=== PATIENT | male | born 1945 | race Caucasian/White ===

== ENCOUNTER 2020-04-18 11:32 | Inpatient (IN) | payer MEDICARE, SELFPAY ==
[2020-04-18] VITALS (48 sets, daily range): BP systolic 105–179; BP diastolic 62–119; PULSE 105–156; RESP 18–32; TEMP 36.8–38.2; O2SAT 89–97; BMI 32.3
--- NOTE | 2020-04-18 11:47 | XRR_ITS ---
PROCEDURE INFORMATION: Exam: XR Chest, 1 View Exam date and time: 04/18/2020 11:49 AM Age: 74 years old Clinical indication: Fever; Additional info: Fever. Covid precautions TECHNIQUE: Imaging protocol: XR of the chest Views: 1 view. COMPARISON: No relevant prior studies available. FINDINGS: Lungs: Possible minimal left lower lung opacity. Pleural space: Unremarkable. No pleural effusion. No pneumothorax. Heart/Mediastinum: Unremarkable. No cardiomegaly. Bones/joints: No acute findings. XR/XR chest 1V portable 26220 IMPRESSION: Possible minimal left lower lobe infiltrate, recommend follow-up PA and lateral chest x-ray when clinically feasible.
--- NOTE | 2020-04-18 11:48 | ECG_ITS ---
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 Measurements Intervals [place] Rate: 118 P: 0 [place]: 137 QRS: -69 QRSD: 178 T: 31 QT: 310 QTc: 435 Interpretive Statements SINUS TACHYCARDIA RIGHT BUNDLE BRANCH BLOCK [120+ ms QRS DURATION, UPRIGHT V1, 40+ ms S IN I/aVL/V4/V5/V6] LEFT ANTERIOR FASCICULAR BLOCK [QRS AXIS <= -45, QR IN I, RS IN II] Compared to ECG 04/18/2020 12:06:01 Left ventricular hypertrophy no longer present ST (T wave) deviation no longer present Electronically Signed On 04-18-2020 18:57:27 CDT by Bob Duke M.D. [email or web address]/store/[id number]
--- NOTE | 2020-04-18 11:50 | ED_ITS ---
HPI - General Adult General: Chief complaint: General Medical Stated complaint: N/V HIGH BS Time Seen by Provider: 04/18/20 11:37 History of Present Illness: HPI narrative: This patient is a 74-year-old gentleman who presents today with vomiting and altered mental status. His blood sugar at home was very high apparently. He is an insulin-dependent diabetic. His said when he was first diagnosed he had an episode of DKA that was similar to this though not as severe. She said he has not had any problems since then and that was years ago. He started having the symptoms about 330 this morning. He was seen at his primary care doctor's office this morning and had a COVID test done as well as being sent to the ER. His said he is confused and complaining of being severely thirsty. He has a low-grade fever. She denies any known or suspected covert exposures. Prior to last night the patient has not had any symptoms of fever, cough, diarrhea. Onset (ago): hour(s) (8) Location: abdomen Radiation: non-radiation Severity: severe Associated symptoms: Reports malaise, nausea and vomiting; Deny chest pain, dyspnea, headache(s) or rash Review of Systems General: Reports: 10 or more systems reviewed and unremarkable except in HPI and below Const: Reports: fever(s), chills, fatigue and malaise Eyes: Denies: change in vision ENMT: Denies: odynophagia Card: Denies: chest pain or swelling of feet/ankles Resp: Denies: dyspnea, productive cough or non-productive cough GI: Reports: abdominal pain, nausea and vomiting : Denies: flank pain Musc: Denies: neck pain or back pain Skin/Breast: Denies: rash Neuro: Denies: headache(s), numbness in extremities or weakness in extremities Endo: Reports: polydipsia Dax/Lymph: Denies: easy bruising or easy bleeding Physical Exam Const: COMMON NORMALS: no limitations and alert GENERAL APPEARANCE: cooperative HENMT: HEAD & SCALP: normal to inspection FACE & SINUS: normal facial exam MOUTH: moist mucous membranes abnormal Details: parched Eye: GENERAL EYE: appearance normal, both eyes and all related structures Neck/C-Spine: COMMON NORMALS: supple, no meningeal signs and no JVD Chest: COMMONS NORMALS: normal inspection of the chest Resp: COMMON NORMALS: normal respiratory effort, No use of accessory muscles and clear to auscultation bilaterally EFFORT & INSPECTION: Yes tachypneic AUSCULTATION: clear to auscultation bilaterally Cardio: COMMON NORMALS: no JVD, regular rhythm and No murmurs present (Cardio) RATE: tachycardic RHYTHM: regular rhythm GI: COMMON NORMALS: Normal to inspection, nondistended, normoactive bowel sounds present, Soft to palpation and non-tender INSPECTION: Yes normal to inspection AUSCULTATION: Yes normoactive bowel sounds PALPATION: Yes Soft to palpation Back/Pelvis: COMMON NORMALS: thoracic and lumbar spine normal to inspection Extremity: COMMON NORMALS: normal to inspection Neuro: COMMON NORMALS: moves all extremities, no focal motor deficits and no sensory deficits noted SENSORIUM/ORIENTATION: Yes alert MENINGEAL SIGNS: Yes no meningeal signs Psych: COMMON NORMALS: mental status grossly normal and cooperative MOOD & AFFECT: Yes anxious Skin: COMMON NORMALS: no rashes or lesions noted and turgor normal GENERAL SKIN EXAM: no rashes or lesions noted and turgor normal Course ED course: This patient presented looking like he might have DKA however labs did not support that. His blood sugar was high. He does have a low-grade fever. His rapid COVID test was negative however I am keeping him on COVID precautions and sending a PTC. His labs are potentially related to COVID. He had a CT of his chest abdomen and pelvis which did not show any significant findings. He had insulin and fluids given and that brought his blood sugar down to 170. His mental status improved as his vital signs and blood sugar improved. He will be admitted to the hospitalist for further evaluation and treatment. Vital Signs: Vital signs: Vital Signs Temperature 98.4 F 04/18/20 19:53 Pulse Rate 107 H 04/18/20 19:53 Respiratory Rate 20 H 04/18/20 19:53 Blood Pressure 160/86 04/18/20 19:53 Pulse Oximetry 94 04/18/20 19:53 MDM - General Adult Lab Data: Labs: Lab Results 04/18/20 04/18/20 04/18/20 Range/Units 12:06 12:13 12:13 WBC 9.0 (4.0-10.0) 10^3/ uL RBC 5.27 (4.1-5.3) 10^6/u L Hgb 16.0 (11.7-16.6) g/dL Hct 46.6 (42.0-52.0) % MCV 88.4 (80-94) fL MCH 30.4 (28.0-34.0) pg MCHC 34.3 (30.0-36.0) g/dL RDW 13.8 (12.1-15.1) % Plt Count 194 (130-400) 10^3/c mm MPV 10.3 (7.4-10.4) fL Neut % (Auto) 89.1 % Lymph % (Auto) 5.0 % [place] % (Auto) 5.0 % Eos % (Auto) 0.2 % Baso % (Auto) 0.4 % Neut # (Auto) 7.99 H (1.8-7.7) 10^3/u L Lymph # (Auto) 0.5 L (0.8-4.8) 10^3/u L [place] # (Auto) 0.5 (0.2-0.9) 10^3/u L Eos # (Auto) 0.0 (0.0-0.8) 10^3/u L Baso # (Auto) 0.0 (0.0-0.1) 10^3/u L Nucleated RBC % (a uto) 0 % Nucleated RBCs # 0.0 /100WBC PT 12.60 (12.1-14.9) SECO NDS INR 0.92 (0.8-1.2) D-Dimer 2.52 H (0-0.59) ug/mIFE U Specimen Type Arterial Sample Site Radial, left ABG pH 7.48 H (7.35-7.45) ABG pCO2 31.1 L (35-45) mmHg ABG pO2 59.7 L (80.0-100.0) mmH g ABG HCO3 23.3 (22-26) mmol/L ABG Base Excess 0.8 (-2.0-2.0) mmol/ L [place] Test Pos Hematocrit 48.7 (42-52) % O2 Delivery Device Room air FiO2 21.0 % Agricultural And Forestry Supervisor ID jmn Sodium (136-145) mmol/L Potassium (3.5-5.1) mmol/L Chloride (98-107) mmol/L Carbon Dioxide (22-29) mmol/L Anion Gap (5-19) BUN (8-23) mg/dL Creatinine (0.7-1.2) mg/dL GFR Calculation Glucose (65-115) mg/dL POC Glucose (70-110) mg/dL Calculated Osmolal ity (285-295) mOsm/k g Lactic Acid (0.5-2.2) mmol/L Lactic Acid (Sepsi s) (0.5-2.2) mmol/L Calcium (8.5-10.5) mg/dL Total Bilirubin (0.15-1.2) mg/dL AST (0-40) U/L ALT (0-41) U/L Alkaline Phosphata se (40-130) IU/L Troponin T Baselin e (0-15) ng/L Troponin T 120 Min hoopa (0-15) ng/L Delta Troponin T (0-10) ABS# C-Reactive Protein (0.0-4.9) mg/L NT-Pro-B Natriuret Pep (0-125) pg/mL Total Protein (6.6-8.7) g/dL Albumin (3.5-5.2) g/dL Globulin (1.3-4.6) g/dL Procalcitonin (0-0.5) ng/mL Serum Ketones (Negative) Hepatitis A IgM Ab (Nonreactive) Hep Bs Antigen (Nonreactive) Hep B Core IgM Ab (Nonreactive) Hepatitis C Antibo dy (Nonreactive) Influenza Type A A g (Negative) Influenza Type B A g (Negative) SARS-CoV-2 Ag (Rap id) (Negative) 04/18/20 04/18/20 04/18/20 Range/Units 12:13 12:13 12:13 WBC (4.0-10.0) 10^3/ uL RBC (4.1-5.3) 10^6/u L Hgb (11.7-16.6) g/dL Hct (42.0-52.0) % MCV (80-94) fL MCH (28.0-34.0) pg MCHC (30.0-36.0) g/dL RDW (12.1-15.1) % Plt Count (130-400) 10^3/c mm MPV (7.4-10.4) fL Neut % (Auto) % Lymph % (Auto) % [place] % (Auto) % Eos % (Auto) % Baso % (Auto) % Neut # (Auto) (1.8-7.7) 10^3/u L Lymph # (Auto) (0.8-4.8) 10^3/u L [place] # (Auto) (0.2-0.9) 10^3/u L Eos # (Auto) (0.0-0.8) 10^3/u L Baso # (Auto) (0.0-0.1) 10^3/u L Nucleated RBC % (a uto) % Nucleated RBCs # /100WBC PT (12.1-14.9) SECO NDS INR (0.8-1.2) D-Dimer (0-0.59) ug/mIFE U Specimen Type Sample Site ABG pH (7.35-7.45) ABG pCO2 (35-45) mmHg ABG pO2 (80.0-100.0) mmH g ABG HCO3 (22-26) mmol/L ABG Base Excess (-2.0-2.0) mmol/ L [place] Test Hematocrit (42-52) % O2 Delivery Device FiO2 % Agricultural And Forestry Supervisor ID Sodium 138 (136-145) mmol/L Potassium 4.3 (3.5-5.1) mmol/L Chloride 97 L (98-107) mmol/L Carbon Dioxide 24 (22-29) mmol/L Anion Gap 21.3 H (5-19) BUN 19 (8-23) mg/dL Creatinine 1.1 (0.7-1.2) mg/dL GFR Calculation Not Reportable Glucose 409 H (65-115) mg/dL POC Glucose (70-110) mg/dL Calculated Osmolal ity 306 H (285-295) mOsm/k g Lactic Acid 2.4 H (0.5-2.2) mmol/L Lactic Acid (Sepsi s) (0.5-2.2) mmol/L Calcium 9.8 (8.5-10.5) mg/dL Total Bilirubin 1.1 (0.15-1.2) mg/dL AST 289 H (0-40) U/L ALT 250 H (0-41) U/L Alkaline Phosphata se 226 H (40-130) IU/L Troponin T Baselin e (0-15) ng/L Troponin T 120 Min hoopa (0-15) ng/L Delta Troponin T (0-10) ABS# C-Reactive Protein 20.4 H (0.0-4.9) mg/L NT-Pro-B Natriuret Pep 180 H (0-125) pg/mL Total Protein 8.0 (6.6-8.7) g/dL Albumin 5.0 (3.5-5.2) g/dL Globulin 3.0 (1.3-4.6) g/dL Procalcitonin 0.57 H (0-0.5) ng/mL Serum Ketones Negative (Negative) Hepatitis A IgM Ab (Nonreactive) Hep Bs Antigen (Nonreactive) Hep B Core IgM Ab (Nonreactive) Hepatitis C Antibo dy (Nonreactive) Influenza Type A A g (Negative) Influenza Type B A g (Negative) SARS-CoV-2 Ag (Rap id) Negative (Negative) 04/18/20 04/18/20 04/18/20 Range/Units 12:13 12:13 12:19 WBC (4.0-10.0) 10^3/ uL RBC (4.1-5.3) 10^6/u L Hgb (11.7-16.6) g/dL Hct (42.0-52.0) % MCV (80-94) fL MCH (28.0-34.0) pg MCHC (30.0-36.0) g/dL RDW (12.1-15.1) % Plt Count (130-400) 10^3/c mm MPV (7.4-10.4) fL Neut % (Auto) % Lymph % (Auto) % [place] % (Auto) % Eos % (Auto) % Baso % (Auto) % Neut # (Auto) (1.8-7.7) 10^3/u L Lymph # (Auto) (0.8-4.8) 10^3/u L [place] # (Auto) (0.2-0.9) 10^3/u L Eos # (Auto) (0.0-0.8) 10^3/u L Baso # (Auto) (0.0-0.1) 10^3/u L Nucleated RBC % (a uto) % Nucleated RBCs # /100WBC PT (12.1-14.9) SECO NDS INR (0.8-1.2) D-Dimer (0-0.59) ug/mIFE U Specimen Type Sample Site ABG pH (7.35-7.45) ABG pCO2 (35-45) mmHg ABG pO2 (80.0-100.0) mmH g ABG HCO3 (22-26) mmol/L ABG Base Excess (-2.0-2.0) mmol/ L [place] Test Hematocrit (42-52) % O2 Delivery Device FiO2 % Agricultural And Forestry Supervisor ID Sodium (136-145) mmol/L Potassium (3.5-5.1) mmol/L Chloride (98-107) mmol/L Carbon Dioxide (22-29) mmol/L Anion Gap (5-19) BUN (8-23) mg/dL Creatinine (0.7-1.2) mg/dL GFR Calculation Glucose (65-115) mg/dL POC Glucose 376 (70-110) mg/dL Calculated Osmolal ity (285-295) mOsm/k g Lactic Acid (0.5-2.2) mmol/L Lactic Acid (Sepsi s) (0.5-2.2) mmol/L Calcium (8.5-10.5) mg/dL Total Bilirubin (0.15-1.2) mg/dL AST (0-40) U/L ALT (0-41) U/L Alkaline Phosphata se (40-130) IU/L Troponin T Baselin e 25 H (0-15) ng/L Troponin T 120 Min hoopa (0-15) ng/L Delta Troponin T (0-10) ABS# C-Reactive Protein (0.0-4.9) mg/L NT-Pro-B Natriuret Pep (0-125) pg/mL Total Protein (6.6-8.7) g/dL Albumin (3.5-5.2) g/dL Globulin (1.3-4.6) g/dL Procalcitonin (0-0.5) ng/mL Serum Ketones (Negative) Hepatitis A IgM Ab Non-reactive (Nonreactive) Hep Bs Antigen Non-reactive (Nonreactive) Hep B Core IgM Ab Non-reactive (Nonreactive) Hepatitis C Antibo dy Non-reactive (Nonreactive) Influenza Type A A g (Negative) Influenza Type B A g (Negative) SARS-CoV-2 Ag (Rap id) (Negative) 04/18/20 04/18/20 04/18/20 Range/Units 12:51 14:25 14:25 WBC (4.0-10.0) 10^3/ uL RBC (4.1-5.3) 10^6/u L Hgb (11.7-16.6) g/dL Hct (42.0-52.0) % MCV (80-94) fL MCH (28.0-34.0) pg MCHC (30.0-36.0) g/dL RDW (12.1-15.1) % Plt Count (130-400) 10^3/c mm MPV (7.4-10.4) fL Neut % (Auto) % Lymph % (Auto) % [place] % (Auto) % Eos % (Auto) % Baso % (Auto) % Neut # (Auto) (1.8-7.7) 10^3/u L Lymph # (Auto) (0.8-4.8) 10^3/u L [place] # (Auto) (0.2-0.9) 10^3/u L Eos # (Auto) (0.0-0.8) 10^3/u L Baso # (Auto) (0.0-0.1) 10^3/u L Nucleated RBC % (a uto) % Nucleated RBCs # /100WBC PT (12.1-14.9) SECO NDS INR (0.8-1.2) D-Dimer (0-0.59) ug/mIFE U Specimen Type Sample Site ABG pH (7.35-7.45) ABG pCO2 (35-45) mmHg ABG pO2 (80.0-100.0) mmH g ABG HCO3 (22-26) mmol/L ABG Base Excess (-2.0-2.0) mmol/ L [place] Test Hematocrit (42-52) % O2 Delivery Device FiO2 % Agricultural And Forestry Supervisor ID Sodium (136-145) mmol/L Potassium (3.5-5.1) mmol/L Chloride (98-107) mmol/L Carbon Dioxide (22-29) mmol/L Anion Gap (5-19) BUN (8-23) mg/dL Creatinine (0.7-1.2) mg/dL GFR Calculation Glucose (65-115) mg/dL POC Glucose (70-110) mg/dL Calculated Osmolal ity (285-295) mOsm/k g Lactic Acid (0.5-2.2) mmol/L Lactic Acid (Sepsi s) 2.8 H (0.5-2.2) mmol/L Calcium (8.5-10.5) mg/dL Total Bilirubin (0.15-1.2) mg/dL AST (0-40) U/L ALT (0-41) U/L Alkaline Phosphata se (40-130) IU/L Troponin T Baselin e (0-15) ng/L Troponin T 120 Min hoopa 26.18 H (0-15) ng/L Delta Troponin T 1.18 (0-10) ABS# C-Reactive Protein (0.0-4.9) mg/L NT-Pro-B Natriuret Pep (0-125) pg/mL Total Protein (6.6-8.7) g/dL Albumin (3.5-5.2) g/dL Globulin (1.3-4.6) g/dL Procalcitonin (0-0.5) ng/mL Serum Ketones (Negative) Hepatitis A IgM Ab (Nonreactive) Hep Bs Antigen (Nonreactive) Hep B Core IgM Ab (Nonreactive) Hepatitis C Antibo dy (Nonreactive) Influenza Type A A g Negative (Negative) Influenza Type B A g Negative (Negative) SARS-CoV-2 Ag (Rap id) (Negative) 04/18/20 Range/Units 15:36 WBC (4.0-10.0) 10^3/ uL RBC (4.1-5.3) 10^6/u L Hgb (11.7-16.6) g/dL Hct (42.0-52.0) % MCV (80-94) fL MCH (28.0-34.0) pg MCHC (30.0-36.0) g/dL RDW (12.1-15.1) % Plt Count (130-400) 10^3/c mm MPV (7.4-10.4) fL Neut % (Auto) % Lymph % (Auto) % [place] % (Auto) % Eos % (Auto) % Baso % (Auto) % Neut # (Auto) (1.8-7.7) 10^3/u L Lymph # (Auto) (0.8-4.8) 10^3/u L [place] # (Auto) (0.2-0.9) 10^3/u L Eos # (Auto) (0.0-0.8) 10^3/u L Baso # (Auto) (0.0-0.1) 10^3/u L Nucleated RBC % (a uto) % Nucleated RBCs # /100WBC PT (12.1-14.9) SECO NDS INR (0.8-1.2) D-Dimer (0-0.59) ug/mIFE U Specimen Type Sample Site ABG pH (7.35-7.45) ABG pCO2 (35-45) mmHg ABG pO2 (80.0-100.0) mmH g ABG HCO3 (22-26) mmol/L ABG Base Excess (-2.0-2.0) mmol/ L [place] Test Hematocrit (42-52) % O2 Delivery Device FiO2 % Agricultural And Forestry Supervisor ID Sodium (136-145) mmol/L Potassium (3.5-5.1) mmol/L Chloride (98-107) mmol/L Carbon Dioxide (22-29) mmol/L Anion Gap (5-19) BUN (8-23) mg/dL Creatinine (0.7-1.2) mg/dL GFR Calculation Glucose (65-115) mg/dL POC Glucose 173 (70-110) mg/dL Calculated Osmolal ity (285-295) mOsm/k g Lactic Acid (0.5-2.2) mmol/L Lactic Acid (Sepsi s) (0.5-2.2) mmol/L Calcium (8.5-10.5) mg/dL Total Bilirubin (0.15-1.2) mg/dL AST (0-40) U/L ALT (0-41) U/L Alkaline Phosphata se (40-130) IU/L Troponin T Baselin e (0-15) ng/L Troponin T 120 Min hoopa (0-15) ng/L Delta Troponin T (0-10) ABS# C-Reactive Protein (0.0-4.9) mg/L NT-Pro-B Natriuret Pep (0-125) pg/mL Total Protein (6.6-8.7) g/dL Albumin (3.5-5.2) g/dL Globulin (1.3-4.6) g/dL Procalcitonin (0-0.5) ng/mL Serum Ketones (Negative) Hepatitis A IgM Ab (Nonreactive) Hep Bs Antigen (Nonreactive) Hep B Core IgM Ab (Nonreactive) Hepatitis C Antibo dy (Nonreactive) Influenza Type A A g (Negative) Influenza Type B A g (Negative) SARS-CoV-2 Ag (Rap id) (Negative) Discharge Plan Discharge Admit Provider: Alexandro Coreas Discharge Date/Time: 04/18/20 17:17 Coding Level of Care Code ED Oracle Developer for Chg Fwd Exam Comprehensive
[2020-04-18 12:17] LABS: ABG PCO2 31.1 mmHg (35-45); ABG PH Result 7.48 (7.35-7.45); Arterial Blood Gas Hematocrit 48.7 % (42-52); Base Excess ABG 0.8 mmol/L (-2.0-2.0); Blood Gas Allen Test Pos; Blood Gas Sample Type Arterial; HCO3 ABG 23.3 mmol/L (22-26); PO2 ABG 59.7 mmHg (80.0-100.0)
[2020-04-18 12:18] LABS: Blood Gas Sample Site Radial, left; Oxygen Device ROOM AIR
[2020-04-18 12:37] LABS: Basophils % 0.4 %; Eosinophils % 0.2 %; Hematocrit 46.6 % (42.0-52.0); Lymphocytes # 0.5 10^3/uL (0.8-4.8); Mean Corpuscular HGB Conc 34.3 g/dL (30.0-36.0); Mean Corpuscular Hemoglobin 30.4 pg (28.0-34.0); Mean Corpuscular Volume 88.4 fL (80-94); Mean Platelet Volume 10.3 fL (7.4-10.4); Monocytes # 0.5 10^3/uL (0.2-0.9); Neutrophils # 7.99 10^3/uL (1.8-7.7); Neutrophils % 89.1 %; Nucleated Red Blood Cells % 0 %; Platelet Count 194 10^3/cmm (130-400); Red Blood Count 5.27 10^6/uL (4.1-5.3); Red Cell Distribution Width 13.8 % (12.1-15.1)
[2020-04-18 12:37] LABS: Glucose Point of Care 376 mg/dL (70-110)
[2020-04-18] MEDS: sodium chloride 0.9% 1,000 ML 150 ML IV ×2 (12:47→21:07)
[2020-04-18 12:56] LABS: INR 0.92 (0.8-1.2)
[2020-04-18 12:58] LABS: D Dimer 2.52 ug/mIFEU (0-0.59); Ketone (Acetest) Serum Negative (Negative); Lactic Sepsis W/Reflex 2.4 mmol/L (0.5-2.2); SARS Covid-2 Antigen Negative (Negative)
[2020-04-18 13:00] LABS: Troponin(5th) Baseline 25 ng/L (0-15)
--- NOTE | 2020-04-18 13:01 | CT_ITS ---
WS: [id number] CTA CHEST ABDOMEN AND PELVIS TECHNIQUE: Noncontrast plus contrast enhanced CTA of the chest, abdomen, and pelvis with coronal and sagittal reformatted images and additional MIP Images. CLINICAL INFORMATION: SOB, tachy, high heart rate COMPARISON: None. DLP: 2844.[address] scans at [facility] use at least one of these dose optimization techniques: automat ed exposure control; mA and/or kV adjustment per patient size (includes targeted exams where dose is matched to clinical indication); or iterative reconstruction. FINDINGS: Images degraded by breathing motion artifact. Proximal main pulmonary arteries are normal. Segmental and subsegmental pulmonary arteries degraded by motion artifact. No definite evidence of pu lmonary embolus. Mild chronic emphysematous changes. Bibasilar atelectasis. No acute pulmonary infilt rates. No mediastinal or hilar lymphadenopathy. Coronary calcification. Normal caliber thoracic aorta . No axillary lymphadenopathy. Normal liver. Normal spleen. Small esophageal hiatal hernia. Adrenal glands are normal. Normal renal parenchymal enhancement. Bilateral renal cysts largest in the left measuring 5.1 CM. Fatty atrophy of the pancreas. Gallbladder is contracted. Normal caliber abdominal aorta. No abdominal aortic aneurys m. Mild aortic calcification. Urine distended bladder. Mild prostate enlargement measuring 4.1 CM. Sigmoid diverticulosis. No evide nce of small or large bowel obstruction. CT/CT angio chest w abd pel w con IMPRESSION: 1. Some images degraded by breathing artifact. No definite evidence for pulmon neo embolus. 2. Mild chronic emphysematous changes. Lungs are relatively well aerated. Biba silar atelectasis. 3. Small esophageal hiatal hernia. 4. Bilateral renal cysts largest in the left measuring 5.1 cm. 5. Diverticulosis. No evidence of acute diverticulitis. 6. Enlarged prostate measuring 4.1 CM. 7. Normal caliber thoracic and abdominal aorta.
[2020-04-18 13:08] LABS: NT Pro B Type Natriuretic Pept 180 pg/mL (0-125); Procalcitonin 0.57 ng/mL (0-0.5)
[2020-04-18 13:19] LABS: Alanine Aminotransferase 250 U/L (0-41); Alkaline Phosphatase 226 IU/L (40-130); Anion Gap 21.3 (5-19); Aspartate Amino Transferase 289 U/L (0-40); Blood Urea Nitrogen 19 mg/dL (8-23); C Reactive Protein 20.4 mg/L (0.0-4.9); Calcium 9.8 mg/dL (8.5-10.5); Carbon Dioxide 24 mmol/L (22-29); Chloride 97 mmol/L (98-107); Glucose 409 mg/dL (65-115); Osmolality Calculated 306 mOsm/kg (285-295); Potassium 4.3 mmol/L (3.5-5.1); Sodium 138 mmol/L (136-145); Total Bilirubin 1.1 mg/dL (0.15-1.2)
[2020-04-18 13:21] LABS: Influenza A by IFA Negative (Negative); Influenza B by IFA Negative (Negative)
--- NOTE | 2020-04-18 13:46 | PC.NURSE ---
DR. ZULETA SPEAKING WITH PT AT BEDSIDE. PT THEN TAKEN TO CT VIA CRECHE ATTENDANT AND STRETCHER.
--- NOTE | 2020-04-18 13:48 | ECG_ITS ---
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 Measurements Intervals [place] Rate: 103 P: 42 AL: 171 QRS: -64 QRSD: 180 T: 12 QT: 374 QTc: 491 Interpretive Statements SINUS TACHYCARDIA RIGHT BUNDLE BRANCH BLOCK [120+ ms QRS DURATION, UPRIGHT V1, 40+ ms S IN I/aVL/V4/V5/V6] LEFT ANTERIOR FASCICULAR BLOCK [QRS AXIS <= -45, QR IN I, RS IN II] Compared to ECG 04/18/2020 14:10:39 No significant changes Electronically Signed On 04-18-2020 19:31:36 CDT by Bob Duke M.D. [email or web address] regional hospitalPlacecastpromedica memorial hospital.[employer]/store/[id number]
[2020-04-18] MEDS: iohexol 350 mg/mL 100 mL Btl IV (14:00)
[2020-04-18 14:13] LABS: Reflex Lactate Order REFLEX LACTIC ORDERD
[2020-04-18] MEDS: insulin regular-human 100 units/1 mL 10 UNIT IVP (14:18)
[2020-04-18] MEDS: cefTRIAXone 1,000 MG in sodium chloride 0.9% (plus) 50 ML 100 MG IV (14:21)
[2020-04-18] MEDS: azithromycin 500 MG in sodium chloride 0.9% 250 ML 250 MG IV (14:29)
[2020-04-18] MEDS: acetaminophen 325 mg Tablet 650 MG PO (14:36)
[2020-04-18] MEDS: sodium chloride 0.9% 1,000 ML 999 ML IV (14:36)
[2020-04-18 14:55] LABS: Lactic Acid level (Lactate) 2.8 mmol/L (0.5-2.2)
[2020-04-18 14:58] LABS: Troponin 5 2HR 26.18 ng/L (0-15); Troponin 5 2HR Delta 1.18 ABS# (0-10)
[2020-04-18 15:40] LABS: Glucose Point of Care 173 mg/dL (70-110)
--- NOTE | 2020-04-18 16:33 | PC.NURSE ---
ATTEMPTED REPORT NURSE UNAVAILABLE.
--- NOTE | 2020-04-18 17:48 | ECG_ITS ---
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 Measurements Intervals [place] Rate: 121 P: [place]: -1 QRS: -75 QRSD: 165 T: 37 QT: 349 QTc: 497 Interpretive Statements SINUS TACHYCARDIA RIGHT BUNDLE BRANCH BLOCK [120+ ms QRS DURATION, UPRIGHT V1, 40+ ms S IN I/aVL/V4/V5/V6] LEFT ANTERIOR FASCICULAR BLOCK [QRS AXIS <= -45, QR IN I, RS IN II] LEFT VENTRICULAR HYPERTROPHY AND ST-T CHANGE [VOLTAGE CRITERIA PLUS ST/T ABNORMALITY] No previous ECG available for comparison Electronically Signed On 04-18-2020 19:38:22 CDT by Bob Duke M.D. [email or web address] View Technologiestippah county hospitalEatStreetgreen cross hospital.[employer]/store/[id number]
--- NOTE | 2020-04-18 19:01 | ECG_ITS ---
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 Measurements Intervals [place] Rate: 100 P: [place]: -1 QRS: -60 QRSD: 185 T: -9 QT: 392 QTc: 507 Interpretive Statements Possible sinus tachycardia RIGHT BUNDLE BRANCH BLOCK [120+ ms QRS DURATION, UPRIGHT V1, 40+ ms S IN I/aVL/V4/V5/V6] LEFT ANTERIOR FASCICULAR BLOCK [QRS AXIS <= -45, QR IN I, RS IN II] SEPTAL MYOCARDIAL INFARCTION [40+ ms Q WAVE IN V1/V2], PROBABLY OLD Compared to ECG 04/18/2020 16:55:10 Myocardial infarct finding now present Sinus tachycardia no longer present Electronically Signed On 04-19-2020 18:34:44 CDT by Arturo Snider M.D. [email or web address].[email or web address]/store/[id number]
[2020-04-18 19:02] LABS: Troponin 5 6HR 29.92 ng/L (0-15); Troponin 5 6HR Delta 4.92 ng/L (0-12)
--- NOTE | 2020-04-18 19:16 | PM.HP ---
Providers/Chief Complaint Admitting Physician: Alexandro Coreas Chief Complaint: N/V HIGH BS History of Present Illness Andi Caceres is a 74 year old male with past medical history of brittle diabetes who presented to emergency room with complaints of confusion. He was in his normal state of health this morning. He states that he forgot to take his insulin because he was in hurry to go to his PCPs appointment. When he arrived he was already confused. There was associated nausea and vomiting. In the emergency room he was found to have blood sugar above 400. He was given IV fluids and insulin bolus. His confusion improved quickly. Currently he reports feeling much better. He is awake alert and oriented x3. No acute distress. He already had his dinner without any nausea or vomiting. He also denies any abdominal pain. He reports some cough with colored mucus. Denies shortness of breath. No fevers or chills. Denies diarrhea. Denies dysuria. Recently he was started on Lipitor. Took several doses. Today his LFTs were significantly elevated. Denies any similar episodes in the past. He reports hypertension, denies coronary artery disease or CHF, denies COPD, has history of dyslipidemia which was recently diagnosed. Reports GERD. Family history is unremarkable and noncontributory.. He reports drinking alcohol on regular basis. Denies tobacco. Denies drugs. Review of Systems General: Reports: 10 or more systems reviewed and unremarkable except in HPI and below Medications/Allergies Home Medications Medication Instructions Recorded Confirmed Last Taken Type aspirin 81 mg PO DAILY 04/18/20 04/18/20 04/17/20 History atorvastatin 40 mg PO DAILY 04/18/20 04/18/20 04/17/20 History insulin NPH isoph U-100 human See Rx Instructions .ROUTE .COMPLEX 04/18/20 04/18/20 04/17/20 History [Novolin N Flexpen] insulin regular human [Novolin R 25 unit SUBCUT BID 04/18/20 04/18/20 04/17/20 History Flexpen] lisinopril 40 mg PO DAILY 04/18/20 04/18/20 04/17/20 History metformin 1,000 mg PO BID 04/18/20 04/18/20 04/17/20 History omeprazole 20 mg PO BID 04/18/20 04/18/20 04/17/20 History Allergies Allergy/AdvReac Type Severity Reaction Status Date / Time No Known Allergies Allergy Unverified 04/18/20 13:15 Vitals/I&O/Wt Last Vital Signs Temp 98.2 F 04/18/20 17:00 Pulse 107 H 04/18/20 17:00 Resp 18 04/18/20 17:00 BP 147/86 04/18/20 17:00 Pulse Ox 94 04/18/20 17:00 04/18/20 04/18/20 04/18/20 06:59 14:59 22:59 Intake Total .65 / .65 Balance .65 / . Weight last 48 hrs Weight 105.233 kg Physical Exam Narrative: EXAM NARRATIVE: Awake alert oriented. No acute distress. Mood and affect are appropriate. Responses are adequate. Skin is warm and dry. Moist mucous membranes. Neck is supple. No JVD Lungs decreased breath sounds bibasilarly. Minimal crackles. No respiratory distress Heart S1, S2, regular Abdomen is obese, soft, nontender, bowel sounds are present Extremities trace edema. No cyanosis. No calf tenderness bilaterally Neurological examination is nonfocal. Normal speech. Data : 04/18/20 12:13 04/18/20 12:13 Other Labs: Laboratory Results WBC 9.0 10^3/uL (4.0-10.0) 04/18/20 12:13 RBC 5.27 10^6/uL (4.1-5.3) 04/18/20 12:13 Hgb 16.0 g/dL (11.7-16.6) 04/18/20 12:13 Hct 46.6 % (42.0-52.0) 04/18/20 12:13 MCV 88.4 fL (80-94) 04/18/20 12:13 MCH 30.4 pg (28.0-34.0) 04/18/20 12:13 MCHC 34.3 g/dL (30.0-36.0) 04/18/20 12:13 RDW 13.8 % (12.1-15.1) 04/18/20 12:13 Plt Count 194 10^3/cmm (130-400) 04/18/20 12:13 MPV 10.3 fL (7.4-10.4) 04/18/20 12:13 Neut % (Auto) 89.1 % 04/18/20 12:13 Lymph % (Auto) 5.0 % 04/18/20 12:13 Juab % (Auto) 5.0 % 04/18/20 12:13 Eos % (Auto) 0.2 % 04/18/20 12:13 Baso % (Auto) 0.4 % 04/18/20 12:13 Neut # (Auto) 7.99 10^3/uL (1.8-7.7) H 04/18/20 12:13 Lymph # (Auto) 0.5 10^3/uL (0.8-4.8) L 04/18/20 12:13 Juab # (Auto) 0.5 10^3/uL (0.2-0.9) 04/18/20 12:13 Eos # (Auto) 0.0 10^3/uL (0.0-0.8) 04/18/20 12:13 Baso # (Auto) 0.0 10^3/uL (0.0-0.1) 04/18/20 12:13 Nucleated RBC % (auto) 0 % 04/18/20 12:13 Nucleated RBCs # 0.0 /100WBC 04/18/20 12:13 PT 12.60 SECONDS (12.1-14.9) 04/18/20 12:13 INR 0.92 (0.8-1.2) 04/18/20 12:13 D-Dimer 2.52 ug/mIFEU (0-0.59) H 04/18/20 12:13 Specimen Type Arterial 04/18/20 12:06 Sample Site Radial, left 04/18/20 12:06 ABG pH 7.48 (7.35-7.45) H 04/18/20 12:06 ABG pCO2 31.1 mmHg (35-45) L 04/18/20 12:06 ABG pO2 59.7 mmHg (80.0-100.0) L 04/18/20 12:06 ABG HCO3 23.3 mmol/L (22-26) 04/18/20 12:06 ABG Base Excess 0.8 mmol/L (-2.0-2.0) 04/18/20 12:06 Jasper Test Pos 04/18/20 12:06 Hematocrit 48.7 % (42-52) 04/18/20 12:06 O2 Delivery Device Room air 04/18/20 12:06 FiO2 21.0 % 04/18/20 12:06 Log Haul Operator ID [id number] 04/18/20 12:06 Sodium 138 mmol/L (136-145) 04/18/20 12:13 Potassium 4.3 mmol/L (3.5-5.1) 04/18/20 12:13 Chloride 97 mmol/L (98-107) L 04/18/20 12:13 Carbon Dioxide 24 mmol/L (22-29) 04/18/20 12:13 Anion Gap 21.3 (5-19) H 04/18/20 12:13 BUN 19 mg/dL (8-23) 04/18/20 12:13 Creatinine 1.1 mg/dL (0.7-1.2) 04/18/20 12:13 GFR Calculation Not Reportable 04/18/20 12:13 Glucose 409 mg/dL (65-115) H 04/18/20 12:13 POC Glucose 173 mg/dL (70-110) 04/18/20 15:36 Calculated Osmolality 306 mOsm/kg (285-295) H 04/18/20 12:13 Lactic Acid 2.4 mmol/L (0.5-2.2) H 04/18/20 12:13 Lactic Acid (Sepsis) 2.8 mmol/L (0.5-2.2) H 04/18/20 14:25 Calcium 9.8 mg/dL (8.5-10.5) 04/18/20 12:13 Total Bilirubin 1.1 mg/dL (0.15-1.2) 04/18/20 12:13 AST 289 U/L (0-40) H 04/18/20 12:13 ALT 250 U/L (0-41) H 04/18/20 12:13 Alkaline Phosphatase 226 IU/L (40-130) H 04/18/20 12:13 Troponin T Baseline 25 ng/L (0-15) H 04/18/20 12:13 Troponin T 120 Minute 26.18 ng/L (0-15) H 04/18/20 14:25 Delta Troponin T 1.18 ABS# (0-10) 04/18/20 14:25 Troponin T Hi Sens 6Hr 29.92 ng/L (0-15) H 04/18/20 18:15 Troponin T Hi Sens 6Hr Delta 4.92 ng/L (0-12) 04/18/20 18:15 C-Reactive Protein 20.4 mg/L (0.0-4.9) H 04/18/20 12:13 NT-Pro-B Natriuret Pep 180 pg/mL (0-125) H 04/18/20 12:13 Total Protein 8.0 g/dL (6.6-8.7) 04/18/20 12:13 Albumin 5.0 g/dL (3.5-5.2) 04/18/20 12:13 Globulin 3.0 g/dL (1.3-4.6) 04/18/20 12:13 Procalcitonin 0.57 ng/mL (0-0.5) H 04/18/20 12:13 Serum Ketones Negative (Negative) 04/18/20 12:13 Influenza Type A Ag Negative (Negative) 04/18/20 12:51 Influenza Type B Ag Negative (Negative) 04/18/20 12:51 SARS-CoV-2 Ag (Rapid) Negative (Negative) 04/18/20 12:13 Impressions Chest X-Ray 04/18/20 11:47 IMPRESSION: Possible minimal left lower lobe infiltrate, recommend follow-up PA and lateral chest x-ray when clinically feasible. Chest/Abdomen/Pelvis CT 04/18/20 13:01 IMPRESSION: 1. Some images degraded by breathing artifact. No definite evidence for pulmonary embolus. 2. Mild chronic emphysematous changes. Lungs are relatively well aerated. Bibasilar atelectasis. 3. Small esophageal hiatal hernia. 4. Bilateral renal cysts largest in the left measuring 5.1 cm. 5. Diverticulosis. No evidence of acute diverticulitis. 6. Enlarged prostate measuring 4.1 CM. 7. Normal caliber thoracic and abdominal aorta. Micro: Microbiology 04/18/20 12:20 Blood Culture - Preliminary Blood SPECIMEN COLLECTED 04/18/20 12:13 Blood Culture - Preliminary Blood SPECIMEN COLLECTED A&P Additional A&P Information Acute metabolic encephalopathy. Currently resolved. Probably multifactorial. I suspect that dehydration and hyperglycemia are the primary causes. However the urine test is still pending. We will continue close monitoring. Sinus tachycardia present on admission. Mostly resolved with IV fluids. We will continue monitoring on telemetry. We will continue IV fluid hydration. Mild elevation of troponin probably secondary to #2. No chest pain. No history of coronary artery disease. We will resume his home aspirin. Elevated LFTs. Stopping Lipitor. I suspect that this was due to statin. Will require outpatient monitoring of liver enzymes and lipid levels. Suspected pneumonia. We will continue antibiotics. Will check procalcitonin level in the morning. Alcohol. We will start him on CIWA protocol. Will also receive vitamin replacement. Uncontrolled hyperglycemia. Could be noncompliance with home medications. We will check his A1c level. We will cover him with insulin sliding scale. We will resume his home maintenance insulin. Holding metformin for now. DVT prophylaxis. Lovenox. Hypertension. Will use PRN labetalol for now. CODE STATUS. He wants to be DNR. He fully understands the concept. The plan of care was discussed with the patient. He verbalized understanding and agreement. Attestations Medical Necessity Statement*: I expect that he will require at least 2 midnights to complete work-up and continue treatments and monitoring. Coding Level of Care Code Acute Technical Sales Director for Janet Canales
[2020-04-18 20:00] LABS: Lactic Sepsis W/Reflex 1.7 mmol/L (0.5-2.2)
[2020-04-18 20:26] LABS: Hepatitis A Antibody IgM Non-Reactive (Nonreactive); Hepatitis B Core IgM Non-Reactive (Nonreactive); Hepatitis B Surface Antigen Non-Reactive (Nonreactive); Hepatitis C Virus Antibody Non-Reactive (Nonreactive)
[2020-04-18 20:42] LABS: Glucose Point of Care 520 mg/dL (70-110)
[2020-04-18] MEDS: enoxaparin 40 mg/0.4 mL Syringe SUBCUT (21:06)
[2020-04-18] MEDS: sodium chloride 0.9% 2,000 ML 999 ML IV (22:13)
[2020-04-18 23:04] LABS: Bilirubin Urine Neg (Negative); Blood Urine Neg (Negative); Glucose Urine UA 4+ (Normal); Ketones Urine 1+ (Negative); Nitrate Urine Negative (Negative); Protein Urine Neg (Negative); Urine Appearance Clear (CLEAR); Urine Color Yellow (Yellow); Urobilinogen Urine Norm (Negative); pH Urine 7 (5-7)
[2020-04-18 23:05] LABS: Add Urine Microscopic? YES; Bacteria Urine R /hpf; Leukocyte Esterase Urine Negative (Negative); RBC Urine RARE /hpf (0-2); Squamous Epithelial Cell Urine RARE /hpf (0-5); WBC Urine RARE /hpf (0-5)
[2020-04-19] VITALS (7 sets, daily range): BP systolic 160–220; BP diastolic 80–110; PULSE 77–108; RESP 18–22; TEMP 36.8–38.8; O2SAT 94–95
[2020-04-19 00:06] LABS: Glucose Point of Care 244 mg/dL (70-110)
[2020-04-19] MEDS: acetaminophen 325 mg Tablet 650 MG PO (00:31)
[2020-04-19] MEDS: sodium chloride 0.9% 1,000 ML 100 ML IV (05:11)
[2020-04-19 06:06] LABS: Basophils # 0.1 10^3/uL (0.0-0.1); Basophils % 0.5 %; Eosinophils % 0.2 %; Hematocrit 40.5 % (42.0-52.0); Hemoglobin 13.3 g/dL (11.7-16.6); Lymphocytes # 1.1 10^3/uL (0.8-4.8); Mean Corpuscular HGB Conc 32.8 g/dL (30.0-36.0); Mean Corpuscular Hemoglobin 30.4 pg (28.0-34.0); Mean Corpuscular Volume 92.7 fL (80-94); Mean Platelet Volume 11.2 fL (7.4-10.4); Monocytes # 0.9 10^3/uL (0.2-0.9); Neutrophils % 80.9 %; Nucleated Red Blood Cells % 0 %; Platelet Count 170 10^3/cmm (130-400); Red Blood Count 4.37 10^6/uL (4.1-5.3); Red Cell Distribution Width 13.9 % (12.1-15.1); White Blood Count 10.9 10^3/uL (4.0-10.0)
[2020-04-19 06:39] LABS: Thyroid Stimulating Hormone 0.84 uIU/mL (0.27-4.20)
[2020-04-19 06:41] LABS: Alanine Aminotransferase 133 U/L (0-41); Albumin Level 3.8 g/dL (3.5-5.2); Alkaline Phosphatase 146 IU/L (40-130); Anion Gap 16.3 (5-19); Aspartate Amino Transferase 82 U/L (0-40); Blood Urea Nitrogen 14 mg/dL (8-23); Calcium 8.8 mg/dL (8.5-10.5); Carbon Dioxide 23 mmol/L (22-29); Chloride 104 mmol/L (98-107); Globulin 2.7 g/dL (1.3-4.6); Glucose 275 mg/dL (65-115); Osmolality Calculated 298 mOsm/kg (285-295); Phosphorus 3.4 mg/dL (2.5-4.5); Potassium 4.3 mmol/L (3.5-5.1); Sodium 139 mmol/L (136-145); Total Bilirubin 1.1 mg/dL (0.15-1.2); Total Protein 6.5 g/dL (6.6-8.7)
[2020-04-19 06:51] LABS: Cholesterol 113 mg/dL (0-200); HDL Cholesterol 39 mg/dL (60-100); LDL Cholesterol Calculated 32 mg/dL (50-129); LDL HDL Ratio 0.82 RATIO (0.00-3.22); Triglycerides 211 mg/dL (0-150)
[2020-04-19 07:00] LABS: Glucose Point of Care 331 mg/dL (70-110)
[2020-04-19 07:29] LABS: Estmated Average Glucose 209; Hemoglobin A1C 8.9 % (4.0-6.0)
--- NOTE | 2020-04-19 08:46 | PC.NURSE ---
0800 Started #20 g IV in right hand, connected to NS at 100ml/hr.
[2020-04-19] MEDS: multivitamin therapeutic Tablet 1 TAB PO (08:55)
[2020-04-19] MEDS: thiamine 100 mg Tablet PO (08:55)
[2020-04-19] MEDS: aspirin 81 mg Chew Tablet PO (08:55)
[2020-04-19] MEDS: doxycycline 100 mg Tablet PO (08:55)
[2020-04-19] MEDS: pantoprazole DR 40 mg Tablet PO ×2 (08:55→17:26)
[2020-04-19] MEDS: folic acid 1 mg Tablet PO (08:55)
--- NOTE | 2020-04-19 09:57 | PC.NURSE ---
0845 Notified of critical lab of Blood cultures 4 of 4 gram neg rods. Pt on Rocephin, will see what is lab further results.
[2020-04-19] MEDS: sodium chloride 0.9% 1,000 ML 75 ML IV (10:26)
[2020-04-19 11:52] LABS: Glucose Point of Care 268 mg/dL (70-110)
[2020-04-19] MEDS: cefTRIAXone 1,000 MG in sodium chloride 0.9% (plus) 50 ML 100 MG IV ×2 (12:22→12:39)
[2020-04-19] MEDS: insulin glargine 100 units/1 mL 30 UNIT SUBCUT ×2 (12:55→22:11)
--- NOTE | 2020-04-19 15:24 | PM.PN ---
Subjective Subjective: Interval history: Patient looks tired. Slightly confused. Responses are adequate and he is oriented. No acute distress. Denies any pain. Denies chest pain, shortness of breath, cough, palpitations. Denies abdominal pain. Denies dysuria. No nausea or vomiting. No diarrhea. Medications: Reviewed: Yes Medication Review Details: Generic Name Dose Route Start Last Admin Trade Name Freq PRN Reason Stop Dose Admin Acetaminophen 650 mg 04/19/20 00:19 04/19/20 00:31 Tylenol PO 650 mg Q4H PRN Administration MILD PAIN OR INCR EASE TEMP Aspirin 81 mg 04/19/20 09:00 04/19/20 08:55 Aspirin Chewable PO 81 mg DAILY FABIANO Administration Doxycycline Monohy drate 100 mg 04/19/20 09:00 04/19/20 08:55 Vibramycin PO 100 mg BID FABIANO Administration Protocol Enoxaparin Sodium 40 mg 04/18/20 20:00 04/18/20 21:06 Lovenox SUBCUT 40 mg Q24H FABIANO Administration Folic Acid 1 mg 04/19/20 09:00 04/19/20 08:55 Folic Acid PO 1 mg DAILY FABIANO Administration Sodium Chloride 1,000 mls @ 75 ml s/hr 04/18/20 12:00 04/19/20 10:30 Sodium Chloride 0.9% IV 100 mls/hr .[id number] FABIANO Infusion Diltiazem HCl 125 mg/ Sodium 125 mls @ 0 mls/h r 04/18/20 13:00 04/18/20 19:28 Chloride IV 0 mg/hr .Q0M FABIANO 0 mls/hr Titration Protocol Per Protocol Ceftriaxone Sodium 1,000 mg/ 50 mls @ 100 mls/ hr 04/19/20 12:00 04/19/20 12:39 Sodium Chloride IV 100 mls/hr Q24H FABIANO Administration Protocol Insulin Aspart 0 unit 04/18/20 21:00 04/18/20 22:01 Novolog SUBCUT Not Given BEDTIME FABIANO Protocol Insulin Aspart 0 unit 04/19/20 08:00 04/19/20 12:15 Novolog SUBCUT 10 unit TIDWM FABIANO Administration Protocol Multivitamins Ther apeutic 1 tab 04/19/20 09:00 04/19/20 08:55 Multivitamin Tab PO 1 tab DAILY FABIANO Administration Pantoprazole Sodiu m 40 mg 04/19/20 09:00 04/19/20 08:55 Protonix PO 40 mg BID FABIANO Administration Thiamine Mononitra te 100 mg 04/19/20 09:00 04/19/20 08:55 Vitamin B-1 PO 100 mg DAILY FABIANO Administration Vitals/I&O/Wt Last Vital Signs Temp 98.4 F 04/19/20 12:00 Pulse 96 04/19/20 12:00 Resp 20 H 04/19/20 12:00 BP 178/88 04/19/20 12:00 Pulse Ox 95 04/19/20 12:00 04/19/20 04/19/20 04/19/20 06:59 14:59 22:59 Intake Total 2973.334 / 4522.484 1010 / 1010 Output Total 400 / 800 750 / 750 Balance 2573.334 / 3722.484 260 / 260 Weight last 48 hrs Weight 105.233 kg Physical Exam Narrative: EXAM NARRATIVE: Slightly confused. Sleeping. Oriented x4. No acute distress. Mood and affect are appropriate. Responses are adequate. Skin is warm and dry. Moist mucous membranes. Neck is supple. No JVD Lungs clear bilateral. No crackles today. No respiratory distress Heart S1, S2, regular Abdomen is obese, soft, nontender, bowel sounds are present Extremities 1+ symmetric edema. No cyanosis. No calf tenderness bilaterally Neurological examination is nonfocal. Normal speech. Data : 04/19/20 05:15 04/19/20 05:15 Micro: Microbiology 04/18/20 12:20 Blood Culture - Preliminary Blood Gram Negative Rods 04/18/20 12:13 Blood Culture - Preliminary Blood Gram Negative Rods A&P Additional A&P Information Acute metabolic encephalopathy. Probably due to infection and dehydration. Does not seem to have UTI. We will continue close monitoring and supportive care. Gram-negative bacteremia. Not sure where the source is. Discussed with the radiologist. Gallbladder might be the source. Ordering HIDA scan. Prostate is enlarged but does not seem to be inflamed. UA is negative for UTI. Does not have symptoms. We will switch him to Zosyn. Will wait for sensitivities. Will slightly increase IV fluid rate today. Sinus tachycardia present on admission. Mostly resolved with IV fluids. We will continue monitoring on telemetry. We will continue IV fluid hydration. Mild elevation of troponin probably secondary to #2. No chest pain. No history of coronary artery disease. We will resume his home aspirin. Elevated LFTs. Improved. Lipitor is stopped. I suspect that this was due to statin. Will require outpatient monitoring of liver enzymes and lipid levels. Has fatty liver on Doppler ultrasound. Suspected pneumonia. Discussed with the radiologist Dr. Reyes. He doubts that there is evidence of pneumonia. Will stop doxycycline. Continue Zosyn for now. Alcohol. We will start him on CIWA protocol. Will also receive vitamin replacement. Uncontrolled hyperglycemia. Could be noncompliance with home medications. Discussed with the pharmacist. Switching his maintenance insulin to Lantus with slightly increased dose. We will continue insulin sliding scale. DVT prophylaxis. Lovenox. Hypertension. Will use PRN labetalol for now. CODE STATUS. He wants to be DNR. He fully understands the concept. The plan of care was discussed with the patient. He verbalized understanding and agreement. Attestations Medical Necessity Statement*: The plan of care requires him to remain hospitalized. Coding Level of Care Code Acute Transportation Analyst for Janet Canales
[2020-04-19] MEDS: labetalol 5 mg/mL SDV 20mL 10 MG IVP (16:12)
[2020-04-19 17:08] LABS: Glucose Point of Care 313 mg/dL (70-110)
[2020-04-19] MEDS: metoprolol tartrate 25 mg Tablet PO (17:25)
[2020-04-19] MEDS: piperacillin-tazobactam 3.375 GM in sodium chloride 0.9% (plus) 50 ML IV (17:25)
--- NOTE | 2020-04-19 19:26 | US_ITS ---
WS: [id number] ULTRASOUND ABDOMEN LIMITED CLINICAL INFORMATION: Elevated LFTs. COMPARISON: None. FINDINGS: Liver Size: Enlarged Craniocaudal length: 18.6 cm. Echogenicity: Coarse Surface nodularity: None. Mass (size and location): None. Bile ducts Intrahepatic ducts: Normal. Common bile duct diameter: 0.3 cm. Gallbladder Sludge Gallstones: None. Gallbladder sludge: Present Gallbladder wall thickening: Mild wall thickening measuring 3 mm Pericholecystic fluid: None. Sonographic Turner sign: Absent. Pancreas Not well seen Right kidney: Cyst inferior pole right kidney measuring 2.0 x 2.8 cm Hydronephrosis: None. Size: 12.9 cm x 5.0 cm x 6.4 cm. Abdominal aorta and IVC Visualized portions are normal. Ascites: None. US/US abdomen limited [id number] IMPRESSION: 1. Hepatomegaly with diffuse fatty infiltration 2. Gallbladder is contracted with gallbladder sludge. No shadowing calculi. Mi nimal wall thickening. No pericholecystic fluid. 3. Normal common bile duct. 4. Right inferior pole renal cyst measuring 2.0x2.8 cm 5. No hydronephrosis in right kidney.
[2020-04-19 21:05] LABS: Glucose Point of Care 319 mg/dL (70-110)
[2020-04-19] MEDS: sodium chloride 0.9% 1,000 ML 125 ML IV (22:07)
[2020-04-19] MEDS: enoxaparin 40 mg/0.4 mL Syringe SUBCUT (22:10)
[2020-04-20] VITALS (9 sets, daily range): BP systolic 136–192; BP diastolic 72–93; PULSE 72–113; RESP 16–20; TEMP 36.6–37.9; O2SAT 72–97
[2020-04-20] MEDS: piperacillin-tazobactam 3.375 GM in sodium chloride 0.9% (plus) 50 ML IV ×3 (01:10→16:33)
[2020-04-20 05:40] LABS: Basophils # 0.1 10^3/uL (0.0-0.1); Basophils % 0.7 %; Eosinophils # 0.1 10^3/uL (0.0-0.8); Eosinophils % 0.7 %; Hematocrit 36.9 % (42.0-52.0); Hemoglobin 12.3 g/dL (11.7-16.6); Lymphocytes # 0.8 10^3/uL (0.8-4.8); Lymphocytes % 10.5 %; Mean Corpuscular HGB Conc 33.3 g/dL (30.0-36.0); Mean Corpuscular Hemoglobin 30.2 pg (28.0-34.0); Mean Corpuscular Volume 90.7 fL (80-94); Mean Platelet Volume 10.6 fL (7.4-10.4); Monocytes # 0.6 10^3/uL (0.2-0.9); Monocytes % 8.3 %; Neutrophils # 5.94 10^3/uL (1.8-7.7); Neutrophils % 79.3 %; Nucleated Red Blood Cells % 0 %; Platelet Count 150 10^3/cmm (130-400); Red Blood Count 4.07 10^6/uL (4.1-5.3); Red Cell Distribution Width 13.7 % (12.1-15.1); White Blood Count 7.5 10^3/uL (4.0-10.0)
[2020-04-20 06:12] LABS: Alanine Aminotransferase 85 U/L (0-41); Albumin Level 3.5 g/dL (3.5-5.2); Alkaline Phosphatase 103 IU/L (40-130); Anion Gap 14.8 (5-19); Aspartate Amino Transferase 37 U/L (0-40); Blood Urea Nitrogen 13 mg/dL (8-23); Calcium 8.2 mg/dL (8.5-10.5); Carbon Dioxide 21 mmol/L (22-29); Chloride 101 mmol/L (98-107); Globulin 2.7 g/dL (1.3-4.6); Glucose 212 mg/dL (65-115); Osmolality Calculated 282 mOsm/kg (285-295); Potassium 3.8 mmol/L (3.5-5.1); Sodium 133 mmol/L (136-145); Total Bilirubin 0.7 mg/dL (0.15-1.2); Total Protein 6.2 g/dL (6.6-8.7)
[2020-04-20 06:50] LABS: Glucose Point of Care 241 mg/dL (70-110)
[2020-04-20] MEDS: lisinopril 20 mg Tablet PO (10:41)
[2020-04-20] MEDS: folic acid 1 mg Tablet PO (10:41)
[2020-04-20] MEDS: thiamine 100 mg Tablet PO (10:41)
[2020-04-20] MEDS: pantoprazole DR 40 mg Tablet PO ×2 (10:42→17:49)
[2020-04-20] MEDS: metoprolol tartrate 25 mg Tablet PO ×2 (10:42→17:49)
[2020-04-20] MEDS: multivitamin therapeutic Tablet 1 TAB PO (10:42)
[2020-04-20] MEDS: aspirin 81 mg Chew Tablet PO (10:42)
[2020-04-20] MEDS: insulin glargine 100 units/1 mL 30 UNIT SUBCUT (10:44)
[2020-04-20 10:57] LABS: Glucose Point of Care 385 mg/dL (70-110)
--- NOTE | 2020-04-20 12:29 | PC.NURSE ---
COVID TEST [facility] IN [place] CALLED REGARDING PT COVID TEST. RESULTS ARE NEGATIVE. NOTIFIED DR. MILLER AND HE VERBALIZES UNDERSTANDING. PT OFF PRECAUTIONS.
--- NOTE | 2020-04-20 14:06 | PM.PN ---
Subjective Subjective: Interval history: patient looks better today. He reports feeling better. No acute distress. No weakness. No confusion. No chest pain, shortness of breath, cough, palpitations. Denies abdominal pain. No nausea or vomiting. No diarrhea. No dysuria. Back pain. Medications: Reviewed: Yes Medication Review Details: Generic Name Dose Route Start Last Admin Trade Name Freq PRN Reason Stop Dose Admin Acetaminophen 650 mg 04/19/20 00:19 04/19/20 00:31 Tylenol PO 650 mg Q4H PRN Administration MILD PAIN OR INCR EASE TEMP Aspirin 81 mg 04/19/20 09:00 04/20/20 10:42 Aspirin Chewable PO 81 mg DAILY FABIANO Administration Enoxaparin Sodium 40 mg 04/18/20 20:00 04/19/20 22:10 Lovenox SUBCUT 40 mg Q24H FABIANO Administration Folic Acid 1 mg 04/19/20 09:00 04/20/20 10:41 Folic Acid PO 1 mg DAILY FABIANO Administration Sodium Chloride 1,000 mls @ 125 m ls/hr 04/18/20 12:00 04/20/20 10:39 Sodium Chloride 0.9% IV Not Given .Q8H FABIANO Diltiazem HCl 125 mg/ Sodium 125 mls @ 0 mls/h r 04/18/20 13:00 04/18/20 19:28 Chloride IV 0 mg/hr .Q0M FABIANO 0 mls/hr Titration Protocol Per Protocol Piperacillin Sod/T azobactam 50 mls @ 12.5 mls /hr 04/19/20 16:00 04/20/20 10:42 Sod 3.375 gm/ So dium Chloride IV 12.5 mls/hr Q8H FABIANO Administration Protocol Insulin Aspart 0 unit 04/18/20 21:00 04/19/20 22:11 Novolog SUBCUT 6 unit BEDTIME FABIANO Administration Protocol Insulin Aspart 0 unit 04/19/20 08:00 04/20/20 11:33 Novolog SUBCUT 14 unit TIDWM FABIANO Administration Protocol Labetalol HCl 10 mg 04/18/20 19:11 04/19/20 16:12 Trandate IVP 10 mg Q4H PRN Administration hyp Lisinopril 20 mg 04/20/20 09:00 04/20/20 10:41 Prinivil PO 20 mg DAILY FABIANO Administration Metoprolol Tartrat e 25 mg 04/19/20 18:00 04/20/20 10:42 Lopressor PO 25 mg BID FABIANO Administration Multivitamins Ther apeutic 1 tab 04/19/20 09:00 04/20/20 10:42 Multivitamin Tab PO 1 tab DAILY FABIANO Administration Pantoprazole Sodiu m 40 mg 04/19/20 09:00 04/20/20 10:42 Protonix PO 40 mg BID FABIANO Administration Thiamine Mononitra te 100 mg 04/19/20 09:00 04/20/20 10:41 Vitamin B-1 PO 100 mg DAILY FABIANO Administration Vitals/I&O/Wt Last Vital Signs Temp 97.8 F 04/20/20 08:00 Pulse 88 04/20/20 08:00 Resp 16 04/20/20 08:00 BP 136/72 04/20/20 08:00 Pulse Ox 97 04/20/20 08:00 04/19/20 04/20/20 04/20/20 22:59 06:59 14:59 Intake Total 1045.000 / 2055.000 50 / 2105.000 Output Total 1600 / 2350 500 / 2850 Balance -555.000 / -295.000 -450 / -745.000 Physical Exam Narrative: EXAM NARRATIVE: awake and alert. Oriented x4. No acute distress. Mood and affect are appropriate. Responses are adequate. Skin is warm and dry. Moist mucous membranes. Neck is supple. No JVD Lungs clear bilateral. No crackles today. No respiratory distress Heart S1, S2, regular Abdomen is obese, soft, nontender, bowel sounds are present Extremities 1+ symmetric edema. No cyanosis. No calf tenderness bilaterally Neurological examination is nonfocal. Normal speech. Data : 04/20/20 05:05 04/20/20 05:05 Other Labs: Laboratory Results WBC 7.5 10^3/uL (4.0-10.0) 04/20/20 05:05 RBC 4.07 10^6/uL (4.1-5.3) L 04/20/20 05:05 Hgb 12.3 g/dL (11.7-16.6) 04/20/20 05:05 Hct 36.9 % (42.0-52.0) L 04/20/20 05:05 MCV 90.7 fL (80-94) 04/20/20 05:05 MCH 30.2 pg (28.0-34.0) 04/20/20 05:05 MCHC 33.3 g/dL (30.0-36.0) 04/20/20 05:05 RDW 13.7 % (12.1-15.1) 04/20/20 05:05 Plt Count 150 10^3/cmm (130-400) 04/20/20 05:05 MPV 10.6 fL (7.4-10.4) H 04/20/20 05:05 Neut % (Auto) 79.3 % 04/20/20 05:05 Lymph % (Auto) 10.5 % 04/20/20 05:05 [place] % (Auto) 8.3 % 04/20/20 05:05 Eos % (Auto) 0.7 % 04/20/20 05:05 Baso % (Auto) 0.7 % 04/20/20 05:05 Neut # (Auto) 5.94 10^3/uL (1.8-7.7) 04/20/20 05:05 Lymph # (Auto) 0.8 10^3/uL (0.8-4.8) 04/20/20 05:05 [place] # (Auto) 0.6 10^3/uL (0.2-0.9) 04/20/20 05:05 Eos # (Auto) 0.1 10^3/uL (0.0-0.8) 04/20/20 05:05 Baso # (Auto) 0.1 10^3/uL (0.0-0.1) 04/20/20 05:05 Nucleated RBC % (auto) 0 % 04/20/20 05:05 Nucleated RBCs # 0.0 /100WBC 04/20/20 05:05 PT 12.60 SECONDS (12.1-14.9) 04/18/20 12:13 INR 0.92 (0.8-1.2) 04/18/20 12:13 D-Dimer 2.52 ug/mIFEU (0-0.59) H 04/18/20 12:13 Specimen Type Arterial 04/18/20 12:06 Sample Site Radial, left 04/18/20 12:06 ABG pH 7.48 (7.35-7.45) H 04/18/20 12:06 ABG pCO2 31.1 mmHg (35-45) L 04/18/20 12:06 ABG pO2 59.7 mmHg (80.0-100.0) L 04/18/20 12:06 ABG HCO3 23.3 mmol/L (22-26) 04/18/20 12:06 ABG Base Excess 0.8 mmol/L (-2.0-2.0) 04/18/20 12:06 [place] Test Pos 04/18/20 12:06 Hematocrit 48.7 % (42-52) 04/18/20 12:06 O2 Delivery Device Room air 04/18/20 12:06 FiO2 21.0 % 04/18/20 12:06 Branch Operations Coordinator ID [email or web address] 04/18/20 12:06 Sodium 133 mmol/L (136-145) L 04/20/20 05:05 Potassium 3.8 mmol/L (3.5-5.1) 04/20/20 05:05 Chloride 101 mmol/L (98-107) 04/20/20 05:05 Carbon Dioxide 21 mmol/L (22-29) L 04/20/20 05:05 Anion Gap 14.8 (5-19) 04/20/20 05:05 BUN 13 mg/dL (8-23) 04/20/20 05:05 Creatinine 0.9 mg/dL (0.7-1.2) 04/20/20 05:05 GFR Calculation Not Reportable 04/20/20 05:05 Glucose 212 mg/dL (65-115) H 04/20/20 05:05 POC Glucose 385 mg/dL (70-110) 04/20/20 10:52 Estimat Average Glucose 209 04/19/20 05:15 Hemoglobin A1c 8.9 % (4.0-6.0) H 04/19/20 05:15 Calculated Osmolality 282 mOsm/kg (285-295) L 04/20/20 05:05 Lactic Acid 1.7 mmol/L (0.5-2.2) 04/18/20 19:32 Lactic Acid (Sepsis) 2.8 mmol/L (0.5-2.2) H 04/18/20 14:25 Calcium 8.2 mg/dL (8.5-10.5) L 04/20/20 05:05 Phosphorus 3.4 mg/dL (2.5-4.5) 04/19/20 05:15 Magnesium 2.0 mg/dL (1.7-2.3) 04/20/20 05:05 Total Bilirubin 0.7 mg/dL (0.15-1.2) 04/20/20 05:05 AST 37 U/L (0-40) 04/20/20 05:05 ALT 85 U/L (0-41) H 04/20/20 05:05 Alkaline Phosphatase 103 IU/L (40-130) 04/20/20 05:05 Troponin T Baseline 25 ng/L (0-15) H 04/18/20 12:13 Troponin T 120 Minute 26.18 ng/L (0-15) H 04/18/20 14:25 Delta Troponin T 1.18 ABS# (0-10) 04/18/20 14:25 Troponin T Hi Sens 6Hr 29.92 ng/L (0-15) H 04/18/20 18:15 Troponin T Hi Sens 6Hr Delta 4.92 ng/L (0-12) 04/18/20 18:15 C-Reactive Protein 20.4 mg/L (0.0-4.9) H 04/18/20 12:13 NT-Pro-B Natriuret Pep 180 pg/mL (0-125) H 04/18/20 12:13 Total Protein 6.2 g/dL (6.6-8.7) L 04/20/20 05:05 Albumin 3.5 g/dL (3.5-5.2) 04/20/20 05:05 Globulin 2.7 g/dL (1.3-4.6) 04/20/20 05:05 Triglycerides 211 mg/dL (0-150) H 04/19/20 05:15 Cholesterol 113 mg/dL (0-200) 04/19/20 05:15 LDL Cholesterol, Calc 32 mg/dL (50-129) L 04/19/20 05:15 HDL Cholesterol 39 mg/dL (60-100) L 04/19/20 05:15 LDL/HDL Ratio 0.82 RATIO (0.00-3.22) 04/19/20 05:15 Cholesterol/HDL Ratio 2.90 mg/dL (1.0-5.00) 04/19/20 05:15 Prostate Specific Ag 2.160 ng/mL (0-4) 04/20/20 05:05 Procalcitonin 1.30 ng/mL (0-0.5) H 04/20/20 05:05 TSH 0.84 uIU/mL (0.27-4.20) 04/19/20 05:15 Urine Color Yellow (Yellow) 04/18/20 22:00 Urine Appearance Clear (CLEAR) 04/18/20 22:00 Urine pH 7 (5-7) 04/18/20 22:00 Ur Specific [place] 1.010 (1.005-1.030) 04/18/20 22:00 Urine Protein Neg (Negative) 04/18/20 22:00 Urine Glucose (UA) 4+ (Normal) H 04/18/20 22:00 Urine Ketones 1+ (Negative) H 04/18/20 22:00 Urine Blood Neg (Negative) 04/18/20 22:00 Urine Nitrate Negative (Negative) 04/18/20 22:00 Urine Bilirubin Neg (Negative) 04/18/20 22:00 Urine Urobilinogen Norm mg/dL (Negative) 04/18/20 22:00 Ur Leukocyte Esterase Negative (Negative) 04/18/20 22:00 Urine RBC Rare /hpf (0-2) 04/18/20 22:00 Urine WBC Rare /hpf (0-5) 04/18/20 22:00 Ur Squamous Epith Cells Rare /hpf (0-5) 04/18/20 22:00 Amorphous Sediment Not Reportable 04/18/20 22:00 Urine Bacteria R /hpf (NONE) 04/18/20 22:00 Serum Ketones Negative (Negative) 04/18/20 12:13 Hepatitis A IgM Ab Non-reactive (Nonreactive) 04/18/20 12:13 Hep Bs Antigen Non-reactive (Nonreactive) 04/18/20 12:13 Hep B Core IgM Ab Non-reactive (Nonreactive) 04/18/20 12:13 Hepatitis C Antibody Non-reactive (Nonreactive) 04/18/20 12:13 Influenza Type A Ag Negative (Negative) 04/18/20 12:51 Influenza Type B Ag Negative (Negative) 04/18/20 12:51 SARS-CoV-2 Ag (Rapid) Negative (Negative) 04/18/20 12:13 Impressions Chest X-Ray 04/18/20 11:47 IMPRESSION: Possible minimal left lower lobe infiltrate, recommend follow-up PA and lateral chest x-ray when clinically feasible. Chest/Abdomen/Pelvis CT 04/18/20 13:01 IMPRESSION: 1. Some images degraded by breathing artifact. No definite evidence for pulmonary embolus. 2. Mild chronic emphysematous changes. Lungs are relatively well aerated. Bibasilar atelectasis. 3. Small esophageal hiatal hernia. 4. Bilateral renal cysts largest in the left measuring 5.1 cm. 5. Diverticulosis. No evidence of acute diverticulitis. 6. Enlarged prostate measuring 4.1 CM. 7. Normal caliber thoracic and abdominal aorta. Abdomen Ultrasound 04/19/20 19:26 IMPRESSION: 1. Hepatomegaly with diffuse fatty infiltration 2. Gallbladder is contracted with gallbladder sludge. No shadowing calculi. Minimal wall thickening. No pericholecystic fluid. 3. Normal common bile duct. 4. Right inferior pole renal cyst measuring 2.0x2.8 cm 5. No hydronephrosis in right kidney. Hepatobiliary Scan Nuclear Medicine 04/20/20 15:31 IMPRESSION: 1. Tiny contracted gallbladder appears to fill by 90 minutes. No definite evidence of acute cholecystitis. 2. No significant gallbladder emptying on the delayed imaging suggestive of chronic cholecystitis. Micro: gram-negative bacteria pain to blood samples. Sensitivities are pending. A&P Assessment and plan (1) Gram-negative bacteremia: Status: Acute (2) Pneumonia: Status: Acute (3) Uncontrolled diabetes mellitus: Status: Acute (4) Acute metabolic encephalopathy: Status: Acute (5) Abnormal LFTs: Status: Acute Additional A&P Information Acute metabolic encephalopathy. Probably due to infection and dehydration. resolved. Does not seem to have UTI. We will continue close monitoring and supportive care. Gram-negative bacteremia. Not sure where the source is. Discussed with the radiologist. HIDA scandidn't show cholecystitis. Prostate is enlarged but does not seem to be inflamed. PSA is within normal range. UA is negative for UTI. Does not have symptoms. continuing Zosyn. Will wait for sensitivities. we'll stop IV fluids today. Sinus tachycardia present on admission. resolved. Mild elevation of troponin probably secondary to #2. No chest pain. No history of coronary artery disease. on home aspirin. Elevated LFTs. Improved. Lipitor is stopped. I suspect that this was due to statin. Will require outpatient monitoring of liver enzymes and lipid levels. Has fatty liver on Doppler ultrasound. Suspected pneumonia. Discussed with the radiologist Dr. Reyes. He doubts that there is evidence of pneumonia. Will stop doxycycline. Continue Zosyn for now. Alcohol. We will start him on CIWA protocol. Will also receive vitamin replacement. no evidence of withdrawals. Uncontrolled hyperglycemia. adjusting Lantus dose. Continue insulin sliding scale. DVT prophylaxis. Lovenox. Hypertension. Will use PRN labetalol for now. CODE STATUS. He wants to be DNR. He fully understands the concept. The plan of care was discussed with the patient. He verbalized understanding and agreement. Attestations Medical Necessity Statement*: the plan of care requires that he remains hospitalized. Continue IV antibiotics. Waiting for sensitivities. Need additional testing. Coding Level of Care Code Acute Newsroom Intern for [facility] Fwd Diagnoses Gram-negative bacteremia R78.81 Pneumonia J18.9 Uncontrolled diabetes mellitus E11.65 Acute metabolic encephalopathy G93.41 Abnormal LFTs R94.5
--- NOTE | 2020-04-20 15:31 | NM_ITS ---
WS: [id number] NUCLEAR MEDICINE HIDA SCAN CLINICAL INFORMATION: cholecystitis? TECHNIQUE: Following intravenous administration of 8.6 mCi of technetium 99m mebrofenin, images of th e abdomen were obtained over the course of 60 minutes. Next, gallbladder ejection fraction was determ ined by obtaining preprandial and one-hour postprandial images of the gallbladder following oral ammon stion of Ensure. COMPARISON: CT April 18, 2020 and ultrasound April 17, 2020 FINDINGS: Normal hepatic uptake at 5 minutes. Tiny contracted gallbladder fills by 90 minutes. No definite evid ence of acute cholecystitis. Normal small bowel and common bile duct activity. No evidence of choledo cholithiasis. No significant emptying on the delayed imaging suggestive of chronic cholecystitis. Gallbladder eject ion fraction not calculated due to no significant emptying. NM/NM hepatobiliary w phar* [id number] IMPRESSION: 1. Tiny contracted gallbladder appears to fill by 90 minutes. No definite evid ence of acute cholecystitis. 2. No significant gallbladder emptying on the delayed imaging suggestive of ch ronic cholecystitis.
[2020-04-20 17:54] LABS: Glucose Point of Care 299 mg/dL (70-110)
[2020-04-20 21:02] LABS: Glucose Point of Care 328 mg/dL (70-110)
[2020-04-20] MEDS: enoxaparin 40 mg/0.4 mL Syringe SUBCUT (21:24)
[2020-04-20] MEDS: insulin glargine 100 units/1 mL 35 UNIT SUBCUT (21:25)
[2020-04-21] MEDS: piperacillin-tazobactam 3.375 GM in sodium chloride 0.9% (plus) 50 ML IV ×3 (00:42→17:32)
[2020-04-21 04:48] VITALS: BP 143/71; PULSE 46; RESP 15; TEMP 36.4; O2SAT 94
[2020-04-21 05:59] LABS: Basophils # 0.1 10^3/uL (0.0-0.1); Basophils % 0.8 %; Eosinophils # 0.1 10^3/uL (0.0-0.8); Eosinophils % 1.9 %; Hematocrit 37.5 % (42.0-52.0); Hemoglobin 12.6 g/dL (11.7-16.6); Mean Corpuscular HGB Conc 33.6 g/dL (30.0-36.0); Mean Corpuscular Volume 89.3 fL (80-94); Monocytes # 0.7 10^3/uL (0.2-0.9); Monocytes % 11.7 %; Neutrophils # 4.09 10^3/uL (1.8-7.7); Neutrophils % 69.1 %; Nucleated Red Blood Cells % 0 %; Platelet Count 169 10^3/cmm (130-400); Red Cell Distribution Width 13.4 % (12.1-15.1); White Blood Count 5.9 10^3/uL (4.0-10.0)
[2020-04-21 06:23] LABS: Albumin Level 3.4 g/dL (3.5-5.2); Anion Gap 16.7 (5-19); Blood Urea Nitrogen 14 mg/dL (8-23); Calcium 8.3 mg/dL (8.5-10.5); Carbon Dioxide 20 mmol/L (22-29); Chloride 102 mmol/L (98-107); Glucose 217 mg/dL (65-115); Phosphorus 2.7 mg/dL (2.5-4.5); Potassium 3.7 mmol/L (3.5-5.1); Sodium 135 mmol/L (136-145)
[2020-04-21 06:28] LABS: Magnesium 2.1 mg/dL (1.7-2.3)
[2020-04-21 07:39] LABS: Glucose Point of Care 231 mg/dL (70-110)
[2020-04-21 07:53] VITALS: BP 144/76; PULSE 86; RESP 16; TEMP 37.1; O2SAT 98
[2020-04-21] MEDS: metoprolol tartrate 25 mg Tablet PO ×2 (08:41→17:33)
[2020-04-21] MEDS: lisinopril 20 mg Tablet PO (08:41)
[2020-04-21] MEDS: folic acid 1 mg Tablet PO (08:41)
[2020-04-21] MEDS: insulin glargine 100 units/1 mL 40 UNIT SUBCUT ×2 (08:41→21:16)
[2020-04-21] MEDS: pantoprazole DR 40 mg Tablet PO ×2 (08:41→17:33)
[2020-04-21] MEDS: aspirin 81 mg Chew Tablet PO (08:41)
[2020-04-21] MEDS: thiamine 100 mg Tablet PO (08:42)
[2020-04-21] MEDS: multivitamin therapeutic Tablet 1 TAB PO (08:42)
[2020-04-21 10:56] LABS: Glucose Point of Care 398 mg/dL (70-110)
[2020-04-21 11:16] VITALS: BP 154/91; PULSE 64; RESP 18; TEMP 36.6; O2SAT 94
--- NOTE | 2020-04-21 11:38 | PM.PN ---
Subjective Subjective: Interval history: Continues improving. Patient looks better today. He reports feeling better. No acute distress. No weakness. No confusion. No chest pain, shortness of breath, cough, palpitations. Denies abdominal pain. No nausea or vomiting. No diarrhea. No dysuria. Back pain. Medications: Reviewed: Yes Medication Review Details: Generic Name Dose Route Start Last Admin Trade Name Freq PRN Reason Stop Dose Admin Acetaminophen 650 mg 04/19/20 00:19 04/19/20 00:31 Tylenol PO 650 mg Q4H PRN Administration MILD PAIN OR INCR EASE TEMP Aspirin 81 mg 04/19/20 09:00 04/21/20 08:41 Aspirin Chewable PO 81 mg DAILY FABIANO Administration Enoxaparin Sodium 40 mg 04/18/20 20:00 04/20/20 21:24 Lovenox SUBCUT 40 mg Q24H FABIANO Administration Folic Acid 1 mg 04/19/20 09:00 04/21/20 08:41 Folic Acid PO 1 mg DAILY FABIANO Administration Diltiazem HCl 125 mg/ Sodium 125 mls @ 0 mls/h r 04/18/20 13:00 04/18/20 19:28 Chloride IV 0 mg/hr .Q0M FABIANO 0 mls/hr Titration Protocol Per Protocol Piperacillin Sod/T azobactam 50 mls @ 12.5 mls /hr 04/19/20 16:00 04/21/20 08:37 Sod 3.375 gm/ So dium Chloride IV 12.5 mls/hr Q8H FABIANO Administration Protocol Insulin Aspart 0 unit 04/18/20 21:00 04/20/20 21:25 Novolog SUBCUT 6 unit BEDTIME FABIANO Administration Protocol Insulin Aspart 0 unit 04/19/20 08:00 04/21/20 11:32 Novolog SUBCUT 14 unit TIDWM FABIANO Administration Protocol Insulin Glargine 40 unit 04/21/20 09:00 04/21/20 08:41 Lantus SUBCUT 40 unit Q12H FABIANO Administration Labetalol HCl 10 mg 04/18/20 19:11 04/19/20 16:12 Trandate IVP 10 mg Q4H PRN Administration hyp Lisinopril 20 mg 04/20/20 09:00 04/21/20 08:41 Prinivil PO 20 mg DAILY FABIANO Administration Metoprolol Tartrat e 25 mg 04/19/20 18:00 04/21/20 08:41 Lopressor PO 25 mg BID FABIANO Administration Multivitamins Ther apeutic 1 tab 04/19/20 09:00 04/21/20 08:42 Multivitamin Tab PO 1 tab DAILY FABIANO Administration Pantoprazole Sodiu m 40 mg 04/19/20 09:00 04/21/20 08:41 Protonix PO 40 mg BID FABIANO Administration Thiamine Mononitra te 100 mg 04/19/20 09:00 04/21/20 08:42 Vitamin B-1 PO 100 mg DAILY FABIANO Administration Vitals/I&O/Wt Last Vital Signs Temp 97.8 F 04/21/20 11:16 Pulse 64 04/21/20 11:16 Resp 18 04/21/20 11:16 BP 154/91 04/21/20 11:16 Pulse Ox 94 04/21/20 11:16 04/20/20 04/21/20 04/21/20 22:59 06:59 14:59 Intake Total 46.458 / 96.458 50 / 146.458 360 / 360 Balance 46.458 / -403.542 50 / -353.542 360 / 360 Physical Exam Narrative: EXAM NARRATIVE: awake and alert. Oriented x4. No acute distress. Mood and affect are appropriate. Responses are adequate. Skin is warm and dry. Moist mucous membranes. Neck is supple. No JVD Lungs clear bilateral. No crackles today. No respiratory distress Heart S1, S2, regular Abdomen is obese, soft, nontender, bowel sounds are present Extremities 1+ symmetric edema. No cyanosis. No calf tenderness bilaterally Neurological examination is nonfocal. Normal speech. Data : 04/21/20 05:34 04/21/20 05:34 Micro: Microbiology 04/21/20 09:20 Blood Culture - Preliminary Blood SPECIMEN COLLECTED 04/21/20 09:28 Blood Culture - Preliminary Blood SPECIMEN COLLECTED A&P Assessment and plan (1) Gram-negative bacteremia: Status: Acute (2) Pneumonia: Status: Acute (3) Uncontrolled diabetes mellitus: Status: Acute (4) Acute metabolic encephalopathy: Status: Acute (5) Abnormal LFTs: Status: Acute Additional A&P Information Acute metabolic encephalopathy. Probably due to infection and dehydration. resolved. Does not seem to have UTI. We will continue close monitoring and supportive care. Gram-negative bacteremia. Not sure where the source is. Discussed with the radiologist. HIDA scan also didn't show cholecystitis. Prostate is enlarged but does not seem to be inflamed. PSA is within normal range. UA is negative for UTI. Does not have symptoms. continuing Zosyn. Will wait for sensitivities. Ordering new blood cultures to confirm resolution of bacteremia. Sinus tachycardia present on admission. resolved. Mild elevation of troponin probably secondary to #2. No chest pain. No history of coronary artery disease. on home aspirin. Elevated LFTs. Improved. Lipitor is stopped. I suspect that this was due to statin. Will require outpatient monitoring of liver enzymes and lipid levels. Has fatty liver on Doppler ultrasound. Suspected pneumonia. Discussed with the radiologist Dr. Reyes. He doubts that there is evidence of pneumonia. doxycycline is stopped. Continue Zosyn for now. Alcohol. We will start him on CIWA protocol. Will also receive vitamin replacement. no evidence of withdrawals. Uncontrolled hyperglycemia. adjusting Lantus dose. Continue insulin sliding scale. DVT prophylaxis. Lovenox. Hypertension. Will use PRN labetalol for now. CODE STATUS. He wants to be DNR. He fully understands the concept. The plan of care was discussed with the patient. He verbalized understanding and agreement. 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
--- NOTE | 2020-04-21 11:55 | PC.SOCIAL ---
Pg 2 IMM Explained to pt Pg 2 IMM. Provided pt a copy. No questions voiced. Signed, dated, & timed a copy and placed in chart.
[2020-04-21 15:50] VITALS: BP 180/80; PULSE 86; RESP 20; TEMP 36.3; O2SAT 94
[2020-04-21 18:38] LABS: Glucose Point of Care 273 mg/dL (70-110)
[2020-04-21 20:00] VITALS: BP 169/83; PULSE 71; RESP 20; TEMP 37.4; O2SAT 91
[2020-04-21 21:09] LABS: Glucose Point of Care 318 mg/dL (70-110)
[2020-04-21] MEDS: enoxaparin 40 mg/0.4 mL Syringe SUBCUT (21:16)
[2020-04-22] VITALS (7 sets, daily range): BP systolic 134–184; BP diastolic 56–92; PULSE 61–86; RESP 14–22; TEMP 36.5–37.1; O2SAT 93–97
--- NOTE | 2020-04-22 00:29 | ECG_ITS ---
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 Measurements Intervals [place] Rate: 75 P: 17 DE: 128 QRS: -58 QRSD: 176 T: -29 QT: 415 QTc: 465 Interpretive Statements SINUS RHYTHM WITH FREQUENT VENTRICULAR PREMATURE COMPLEXES RIGHT BUNDLE BRANCH BLOCK [120+ ms QRS DURATION, UPRIGHT V1, 40+ ms S IN I/aVL/V4/V5/V6] LEFT ANTERIOR FASCICULAR BLOCK [QRS AXIS <= -45, QR IN I, RS IN II] POSSIBLE SEPTAL MYOCARDIAL INFARCTION [30 ms Q WAVE IN V1/V2], PROBABLY OLD INTERPRETATION BASED ON A DEFAULT AGE OF 40 YEARS Compared to ECG 04/18/2020 21:21:29 Ventricular premature complex(es) now present Myocardial infarct finding still present Electronically Signed On 04-22-2020 16:34:23 CDT by Bob Duke M.D. [email or web address]/[id number]
[2020-04-22] MEDS: piperacillin-tazobactam 3.375 GM in sodium chloride 0.9% (plus) 50 ML IV ×2 (00:56→08:52)
[2020-04-22] MEDS: labetalol 5 mg/mL SDV 20mL 10 MG IVP (00:56)
--- NOTE | 2020-04-22 01:51 | PC.NURSE ---
Patient telemetry showed a new onset of A-fib, 12 lead obtained 12 lead showed no A-fib present. Patient's BP 178/84 HR 61 labetalol 10mg administered by RN new BP 152/79 HR 70.
[2020-04-22 06:03] LABS: Basophils # 0.1 10^3/uL (0.0-0.1); Eosinophils # 0.1 10^3/uL (0.0-0.8); Eosinophils % 2.6 %; Hematocrit 38.9 % (42.0-52.0); Hemoglobin 13.4 g/dL (11.7-16.6); Lymphocytes # 1.1 10^3/uL (0.8-4.8); Lymphocytes % 21.2 %; Mean Corpuscular HGB Conc 34.4 g/dL (30.0-36.0); Mean Corpuscular Hemoglobin 30.3 pg (28.0-34.0); Mean Platelet Volume 10.7 fL (7.4-10.4); Monocytes # 0.8 10^3/uL (0.2-0.9); Monocytes % 14.9 %; Neutrophils # 3.02 10^3/uL (1.8-7.7); Neutrophils % 59.9 %; Nucleated Red Blood Cells % 0 %; Platelet Count 197 10^3/cmm (130-400); Red Blood Count 4.42 10^6/uL (4.1-5.3); Red Cell Distribution Width 13.6 % (12.1-15.1)
[2020-04-22 06:31] LABS: Alanine Aminotransferase 48 U/L (0-41); Albumin Level 3.6 g/dL (3.5-5.2); Alkaline Phosphatase 85 IU/L (40-130); Anion Gap 13.8 (5-19); Aspartate Amino Transferase 20 U/L (0-40); Blood Urea Nitrogen 14 mg/dL (8-23); Calcium 8.8 mg/dL (8.5-10.5); Carbon Dioxide 26 mmol/L (22-29); Chloride 100 mmol/L (98-107); Globulin 2.8 g/dL (1.3-4.6); Glucose 216 mg/dL (65-115); Magnesium 2.1 mg/dL (1.7-2.3); Osmolality Calculated 289 mOsm/kg (285-295); Potassium 3.8 mmol/L (3.5-5.1); Sodium 136 mmol/L (136-145); Total Bilirubin 0.9 mg/dL (0.15-1.2); Total Protein 6.4 g/dL (6.6-8.7)
[2020-04-22 08:16] LABS: Glucose Point of Care 237 mg/dL (70-110)
[2020-04-22] MEDS: folic acid 1 mg Tablet PO (08:53)
[2020-04-22] MEDS: aspirin 81 mg Chew Tablet PO (08:53)
[2020-04-22] MEDS: lisinopril 20 mg Tablet PO (08:53)
[2020-04-22] MEDS: metoprolol tartrate 25 mg Tablet PO ×2 (08:53→17:52)
[2020-04-22] MEDS: pantoprazole DR 40 mg Tablet PO ×2 (08:53→17:52)
[2020-04-22] MEDS: multivitamin therapeutic Tablet 1 TAB PO (08:53)
[2020-04-22] MEDS: thiamine 100 mg Tablet PO (08:53)
[2020-04-22 10:39] LABS: Glucose Point of Care 318 mg/dL (70-110)
--- NOTE | 2020-04-22 13:31 | P.PN_ITS ---
Subjective Subjective: Interval history: Reports feeling better. He denies any active complaints. No back pain, dysuria, abdominal pain, nausea or vomiting, fevers or chills, diarrhea, chest pain, shortness of breath, cough, palpitations Medications: Reviewed: Yes Medication Review Details: Generic Name Dose Route Start Last Admin Trade Name Freq PRN Reason Stop Dose Admin Acetaminophen 650 mg 04/19/20 00:19 04/19/20 00:31 Tylenol PO 650 mg Q4H PRN Administration MILD PAIN OR INCR EASE TEMP Aspirin 81 mg 04/19/20 09:00 04/22/20 08:53 Aspirin Chewable PO 81 mg DAILY FABIANO Administration Enoxaparin Sodium 40 mg 04/18/20 20:00 04/21/20 21:16 Lovenox SUBCUT 40 mg Q24H FABIANO Administration Folic Acid 1 mg 04/19/20 09:00 04/22/20 08:53 Folic Acid PO 1 mg DAILY FABIANO Administration Diltiazem HCl 125 mg/ Sodium 125 mls @ 0 mls/h r 04/18/20 13:00 04/18/20 19:28 Chloride IV 0 mg/hr .Q0M FABIANO 0 mls/hr Titration Protocol Per Protocol Insulin Aspart 0 unit 04/18/20 21:00 04/21/20 21:17 Novolog SUBCUT 6 unit BEDTIME [facility] Administration Protocol Insulin Aspart 0 unit 04/19/20 08:00 04/22/20 12:31 Novolog SUBCUT 8 unit TIDWM [facility] Administration Protocol Insulin Glargine 45 unit 04/22/20 09:00 04/22/20 10:19 Lantus SUBCUT Not Given Q12H [facility] Labetalol HCl 10 mg 04/18/20 19:11 04/22/20 00:56 Trandate IVP 10 mg Q4H PRN Administration hyp Lisinopril 20 mg 04/20/20 09:00 04/22/20 08:53 Prinivil PO 20 mg DAILY [facility] Administration Metoprolol Tartrat e 25 mg 04/19/20 18:00 04/22/20 08:53 Lopressor PO 25 mg BID FABIANO Administration Multivitamins Ther apeutic 1 tab 04/19/20 09:00 04/22/20 08:53 Multivitamin Tab PO 1 tab DAILY [facility] Administration Pantoprazole Sodiu m 40 mg 04/19/20 09:00 04/22/20 08:53 Protonix PO 40 mg BID FABIANO Administration Thiamine Mononitra te 100 mg 04/19/20 09:00 04/22/20 08:53 Vitamin B-1 PO 100 mg DAILY FABIANO Administration Vitals/I&O/Wt Last Vital Signs Temp 97.7 F 04/22/20 11:25 Pulse 64 04/22/20 11:25 Resp 14 04/22/20 11:25 BP 142/92 04/22/20 11:25 Pulse Ox 96 04/22/20 11:25 04/21/20 04/22/20 04/22/20 22:59 06:59 14:59 Intake Total 290 / 1060 50 / 1110 480 / 480 Output Total 380 / 380 420 / 800 Balance -90 / 680 -370 / 310 480 / 480 Physical Exam Narrative: EXAM NARRATIVE: awake and alert. Oriented x4. No acute distress. Mood and affect are appropriate. Responses are adequate. Skin is warm and dry. Moist mucous membranes. Neck is supple. No JVD Lungs clear bilateral. No crackles today. No respiratory distress Heart S1, S2, regular Abdomen is obese, soft, nontender, bowel sounds are present Extremities 1+ symmetric edema. No cyanosis. No calf tenderness bilaterally Neurological examination is nonfocal. Normal speech. Data : 04/22/20 05:07 04/22/20 05:07 Micro: Microbiology 04/18/20 12:20 Blood Culture - Final Blood Escherichia coli 04/18/20 12:13 Blood Culture - Final Blood Escherichia coli 04/21/20 09:28 Blood Culture - Preliminary Blood NEGATIVE TO DATE 04/21/20 09:20 Blood Culture - Preliminary Blood NEGATIVE TO DATE A&P Assessment and plan (1) Gram-negative bacteremia: Status: Acute (2) Pneumonia: Status: Acute (3) Uncontrolled diabetes mellitus: Status: Acute (4) Acute metabolic encephalopathy: Status: Acute (5) Abnormal LFTs: Status: Acute Additional A&P Information Acute metabolic encephalopathy. Probably due to infection and dehydration. resolved. Does not seem to have UTI. We will continue close monitoring and supportive care. Gram-negative bacteremia. Not sure where the source is. Discussed with Dr. Luna yesterday. We discussed all the findings and information available. She was also puzzled with the fact that we do not have a source. 1 of the possibilities could be aspiration during episodes of encephalopathy weight resulting pneumonia and gram-negative bacteria transitioning into the bloodstream. She agreed with the plan of care. She recommended to transition the patient to p.o. Levaquin if sensitivities allow and if the new blood cultures remain negative. She recommended to continue antibiotics for total of 14 days. I appreciate her help. Sinus tachycardia present on admission. resolved. Mild elevation of troponin probably secondary to #2. No chest pain. No history of coronary artery disease. on home aspirin. Elevated LFTs. Improved. Lipitor is stopped. I suspect that this was due to statin. Will require outpatient monitoring of liver enzymes and lipid levels. Has fatty liver on Doppler ultrasound. Suspected pneumonia. Continue Levaquin. Alcohol. We will start him on CIWA protocol. Will also receive vitamin replacement. no evidence of withdrawals. Uncontrolled hyperglycemia. adjusting Lantus dose. Blood sugars are still high. Continue insulin sliding scale. DVT prophylaxis. Lovenox. Hypertension. Will use PRN labetalol for now. CODE STATUS. He wants to be DNR. He fully understands the concept. The plan of care was discussed with the patient. He verbalized understanding and agreement. Attestations Medical Necessity Statement*: Possible discharge home tomorrow Coding Level of Care Code Acute Broke Beater for Janet Canales Diagnoses Gram-negative bacteremia R78.81 Pneumonia J18.9 Uncontrolled diabetes mellitus E11.65 Acute metabolic encephalopathy G93.41 Abnormal LFTs R94.5
[2020-04-22 16:42] LABS: Glucose Point of Care 314 mg/dL (70-110)
[2020-04-22 20:41] LABS: Glucose Point of Care 361 mg/dL (70-110)
[2020-04-22] MEDS: enoxaparin 40 mg/0.4 mL Syringe SUBCUT (21:08)
[2020-04-22] MEDS: insulin glargine 100 units/1 mL 45 UNIT SUBCUT (21:09)
[2020-04-23] VITALS: BP 172/99; PULSE 66; RESP 18; TEMP 36.8; O2SAT 95
[2020-04-23 03:52] VITALS: BP 137/69; PULSE 70; RESP 18; TEMP 37.1; O2SAT 92
[2020-04-23 07:32] LABS: Glucose Point of Care 306 mg/dL (70-110)
[2020-04-23 07:50] VITALS: BP 150/83; PULSE 86; RESP 17; TEMP 36.6; O2SAT 97
[2020-04-23] MEDS: insulin glargine 100 units/1 mL 45 UNIT SUBCUT (08:12)
[2020-04-23] MEDS: metoprolol tartrate 25 mg Tablet PO (08:12)
[2020-04-23] MEDS: lisinopril 20 mg Tablet PO (08:12)
[2020-04-23] MEDS: levoFLOXacin 750 mg Tablet PO (08:12)
[2020-04-23] MEDS: thiamine 100 mg Tablet PO (08:12)
[2020-04-23] MEDS: folic acid 1 mg Tablet PO (08:13)
[2020-04-23] MEDS: aspirin 81 mg Chew Tablet PO (08:13)
[2020-04-23] MEDS: multivitamin therapeutic Tablet 1 TAB PO (08:13)
[2020-04-23] MEDS: pantoprazole DR 40 mg Tablet PO (08:13)
--- NOTE | 2020-04-23 09:30 | PC.SOCIAL ---
IMM Updated Page 2 of IMM updated and given to patient. Initialed, dated, and timed and placed back in chart.
[2020-04-23 10:55] LABS: Glucose Point of Care 378 mg/dL (70-110)
[2020-04-23 11:30] VITALS: BP 132/89; PULSE 75; RESP 17; TEMP 36.6; O2SAT 97
--- NOTE | 2020-04-23 11:43 | P.DS_ITS ---
Discharge Providers Date of Admission: 04/18/20 16:02 Date of Discharge: April 23, 2020 Attending Provider at Admission: Alexandro Coreas Attending Provider at Discharge: Alexandro Coreas Diagnoses at Discharge Discharge Diagnosis (1) Gram-negative bacteremia: Status: Acute (2) Pneumonia: Status: Acute (3) Uncontrolled diabetes mellitus: Status: Acute (4) Acute metabolic encephalopathy: Status: Acute (5) Abnormal LFTs: Status: Acute Reason for Visit Reason for Visit: N/V HIGH BS Hospital Course Discharge Summary: Andi Caceres is a 74 year old male with past medical history of brittle diabetes who presented to emergency room with complaints of confusion. He was in his normal state of health this morning. He states that he forgot to take his insulin because he was in hurry to go to his PCPs appointment. When he arrived he was already confused. There was associated nausea and vomiting. In the emergency room he was found to have blood sugar above 400. He was given IV fluids and insulin bolus. His confusion improved quickly. Acute metabolic encephalopathy. Probably due to infection and dehydration. r esolved. Does not seem to have UTI. He was found to have gram-negative bacteremia. Not sure where the source is. Discussed with Dr. Joseph. We discussed all the findings and information available. She was also puzzled with the fact that we do not have a source. 1 of the possibilities could be aspiration during episodes of encephalopathy resulting pneumonia and gram-negative bacteria transitioning into the bloodstream. There is no evidence of UTI, prostatitis, cholecystitis. Please see the results of imaging studies. Dr. Luna recommended to transition the patient to p.o. Levaquin if sensitivities allow and if the new blood cultures remain negative. She recommended to continue antibiotics for total of 14 days. Based on the culture results we will switch him to Levaquin yesterday. He will continue for additional 8 days. Second set of blood cultures remains negative. Sinus tachycardia present on admission. resolved. 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 Mild elevation of troponin probably secondary to #2. No chest pain. No history of coronary artery disease. on home aspirin. Elevated LFTs. Improved. Lipitor is stopped. I suspect that this was due to statin. Will require outpatient monitoring of liver enzymes and lipid levels. Has fatty liver on Doppler ultrasound. Suspected pneumonia. Continue Levaquin. Alcohol. No evidence of withdrawals. Counseling is provided. Uncontrolled hyperglycemia. Home medications are adjusted. He will continue NPH insulin 40 units twice daily, metformin and regular insulin for sliding scale. Detailed instructions were discussed with him. Diet was discussed. He verbalized understanding and agreement. In my opinion he would also benefit from endocrinology evaluation and follow-up. He was asked to speak with his primary care physician. DVT prophylaxis. Received Lovenox. Hypertension. Currently stable. Outpatient adjustments to the medications might be necessary. Currently the patient is feeling very well and is eager to go home. His denying any dizziness or lightheadedness, weakness, confusion, fever or chills, nausea or vomiting, chest pain, shortness of breath, cough, palpitations, diarrhea, problems with urination or any other complaint He was instructed to come back to emergency room if he develops any of the symptoms. Physical Exam Narrative: EXAM NARRATIVE: awake and alert. Oriented x4. No acute distress. Mood and affect are appropriate. Responses are adequate. Skin is warm and dry. Moist mucous membranes. Neck is supple. No JVD Lungs clear bilateral. No crackles today. No respiratory distress Heart S1, S2, regular Abdomen is obese, soft, nontender, bowel sounds are present Extremities 1+ symmetric edema. No cyanosis. No calf tenderness bilaterally Neurological examination is nonfocal. Normal speech. Discharge Data Data Completed and Pending: Completed Studies During Hospitalization Category Date Time Status CT angio chest w abd pel w con Urge nt Cat Scan 04/18/20 13:01 Completed XR chest 1V cholo ble [id number] Stat Exams 04/18/20 11:47 Completed NM hepatobiliary w phar* [id number] Rout ine Nuc Med 04/20/20 15:31 Completed US abdomen limite d [id number] Routine Ultrasound 04/19/20 19:26 Completed Pending at discharge Category Date Time Status Blood Culture Sta t Lab 04/21/20 09:20 Results Labs from last 24 hours 04/23/20 04/23/20 04/22/20 10:49 07:28 20:36 POC Glucose 378 306 361 04/22/20 16:21 POC Glucose 314 Vitals: Last Vital Signs Temp 97.8 F 04/23/20 11:30 Pulse 75 04/23/20 11:30 Resp 17 04/23/20 11:30 BP 132/89 04/23/20 11:30 Pulse Ox 97 04/23/20 11:30 Discharge Plan Discharge Patient Disposition: Home Condition: Stable Prescriptions: New lisinopril 20 mg Tablet 20 mg PO DAILY Qty: 30 RF: 0 Novolin N NPH U-100 Insulin 100 unit/mL Suspension 40 unit SUBCUT BIDAC 30 Days Qty: 12 RF: 0 folic acid 1 mg Tablet 1 mg PO DAILY Qty: 30 RF: 0 levofloxacin 750 mg Tablet 750 mg PO Q24H Qty: 8 RF: 0 metoprolol tartrate 25 mg Tablet 25 mg PO BID Qty: 60 RF: 0 Vitamin B-1 (mononitrate) 100 mg Tablet 100 mg PO DAILY Qty: 30 RF: 0 Thera 400 mcg Tablet 1 tab PO DAILY Qty: 30 RF: 0 Novolin R Flexpen 100 unit/mL (3 mL) insulin pen See Rx Instructions .ROUTE .COMPLEX Qty: 15 RF: 0 Continued metformin 1,000 mg tablet 1,000 mg PO BID RF: 0 omeprazole 20 mg capsule,delayed release(DR/EC) 20 mg PO BID RF: 0 aspirin 81 mg Tablet,Chewable 81 mg PO DAILY RF: 0 Discontinued atorvastatin 40 mg tablet 40 mg PO DAILY RF: 0 lisinopril 40 mg tablet 40 mg PO DAILY RF: 0 Novolin R Flexpen 100 unit/mL (3 mL) Insulin Pen 25 unit SUBCUT BID RF: 0 Novolin N Flexpen 100 unit/mL (3 mL) Insulin Pen See Rx Instructions .ROUTE .COMPLEX RF: 0 Discharge Orders: Discharge Order (Routine); Ordered 04/23/20 Ordered By: Alexandro Coreas Other Ambulatory Orders: Comprehensive Metabolic Panel (Routine) Timeframe: 1 Week Facility: [facility] - Location: Lab - Main Lab Ordered By: Alexandro Coreas Referrals: Yuan Chong, KELLY [Emergency Nurse] - 1 week Dillon Connolly MD [Physician] - 1 week (Please call [facility] and make a follow up appointment next week. [phone].) Discharge Diet: Cardiac and Diabetic Discharge Activity: Resume usual activity Patient Instructions: Diabetes and Diet, Diabetic Hypoglycemia (DC), Diabetic Hypoglycemia (GEN), Diabetes Mellitus Type 2 in Adults (DC), Giving an Insulin Injection (DC) Activity Restrictions/Additional Instructions: Please come back to emergency room if develop fever, dizziness or lightheadedness, confusion, loss of consciousness, chills, nausea or vomiting, diarrhea, problems with urination, abdominal pain, weakness, chest pain, palpitations, shortness of breath or any other new complaints. Discharge Attestations Time Spent in Discharge Care*: greater than 30 min Quality Metrics Clinical Quality Measures During this hospital stay, did patient experience: None Coding Level of Care Code Acute Aquarium Tank Attendant for [facility] Fwd Diagnoses Gram-negative bacteremia R78.81 Pneumonia J18.9 Uncontrolled diabetes mellitus E11.65 Acute metabolic encephalopathy G93.41 Abnormal LFTs R94.5
[2020-04-23 13:37] VITALS: BP 132/89; PULSE 75; RESP 17; TEMP 36.6; O2SAT 97
== END 2020-04-23 12:30 | disposition home or self-care (01) | DRG 637 ==
LOC: ER 11:57 → MEDSURG 16:26
PROVIDERS: Emergency Medicine; Admitting Provider Internal Medicine; Visit Provider Internal Medicine
DX: E11.65 Type 2 diabetes mellitus with hyperglycemia (principal); G93.41 Metabolic encephalopathy; J18.9 Pneumonia, unspecified organism; R78.81 Bacteremia; I10 Essential (primary) hypertension; T38.3X6A Underdosing of insulin and oral hypoglycemic [antidiabetic] drugs, initial encounter; Z91.128 Patient's intentional underdosing of medication regimen for other reason; Y92.009 Unspecified place in unspecified non-institutional (private) residence as the place of occurrence of the external cause; Z79.82 Long term (current) use of aspirin; E78.5 Hyperlipidemia, unspecified; K21.9 Gastro-esophageal reflux disease without esophagitis; R00.0 Tachycardia, unspecified
CPT/HCPCS: 12345; 36415; 36416; 36600; 51798; 71045; 71275; 74177; 76705; 78227; 80053; 80061; 80069; 80074; 81001; 82009; 82803; 82962; 83036; 83605; 83735; 83880; 84100; 84145; 84153; 84443; 84484; 85025; 85378; 85610; 86140; 87040; 87077; 87186; 87205; 87426; 87804; 93005; 96372; 96375; 99284; A9537; J0456; J0696; J1650; J1815 ×2; J2543; J3411; J3490; J7030; J7050; Q9967

== ENCOUNTER 2020-04-30 09:49 | Outpatient (CLI) | payer MEDICARE, SELFPAY ==
[2020-04-30 10:43] LABS: Alanine Aminotransferase 23 U/L (0-41); Albumin Level 4.4 g/dL (3.5-5.2); Alkaline Phosphatase 85 IU/L (40-130); Anion Gap 13.8 (5-19); Aspartate Amino Transferase 20 U/L (0-40); Blood Urea Nitrogen 21 mg/dL (8-23); Calcium 10.2 mg/dL (8.5-10.5); Carbon Dioxide 25 mmol/L (22-29); Chloride 102 mmol/L (98-107); Globulin 2.6 g/dL (1.3-4.6); Glucose 172 mg/dL (65-115); Osmolality Calculated 289 mOsm/kg (285-295); Potassium 4.8 mmol/L (3.5-5.1); Sodium 136 mmol/L (136-145); Total Bilirubin 0.4 mg/dL (0.15-1.2)
== END 2020-04-30 09:50 | disposition home or self-care (01) ==
PROVIDERS: PCP Family Medicine; Visit Provider Internal Medicine
DX: R94.5 Abnormal results of liver function studies (principal)
CPT/HCPCS: 36415; 80053